=== PATIENT | male | born 1985 | race Caucasian/White ===

== ENCOUNTER 2023-03-28 08:02 | Outpatient (OUT) | payer OTHER, SELFPAY ==
--- NOTE | 2023-03-28 08:45 | CA_ITS ---
Patient Name: ISHAN HENNING MR#: [id number] : 1985 Exam Date: 03/28/2023 Ordering Doctor: RENÉ KATZ ECHOCARDIOGRAM REPORT PROCEDURE: CA ECHO DOPPLER COMPLETE INDICATIONS: Bradycardia, Afib COMPARISON: None. DESCRIPTION: COMPLETE ECHOCARDIOGRAM Real-time transthoracic echocardiography with 2D, M-mode, spectral and color flow Doppler performed. QUALITY: Technical quality was good. LEFT VENTRICLE: Normal chamber size. Moderate concentric left ventricular hypertrophy. LV EF: Global left ventricular systolic function is normal. Calculated left ventricular ejection fraction is 61% DIASTOLIC: Normal diastolic function. ATRIAL SEPTUM: Inadequately seen. LEFT ATRIUM: Normal chamber size. RIGHT ATRIUM: Mild dilatation. RIGHT VENTRICLE: Upper normal limits in size. Normal right ventricular systolic function. TRICUSPID VALVE: Normal mobility and thickness. No stenosis with trivial regurgitation. No evidence of pulmonary hypertension. RVSP 19mmHg MITRAL VALVE: Normal mobility and thickness. No evidence of mitral valve stenosis. There is no mitral annular calcification. Trivial mitral regurgitation. AORTIC VALVE: Normal trileaflet appearance. No visible sclerosis. Normal leaflet mobility. No evidence of aortic valve stenosis. No aortic regurgitation. AORTIC ROOT: Normal diameter and appearance. PULMONIC VALVE: Normal thickness and mobility. No stenosis. Trivial regurgitation. PERICARDIUM: No evidence of pericardial effusion. IVC: Collapses with inspirations. Normal size. CONCLUSION: 1. Global left ventricular systolic function is normal; visually estimated ejection fraction is 60 to 65% 2. The right ventricle is upper normal limits in size with normal systolic function 3. Moderately increased left ventricular wall thickness 4. The right atrium is mildly dilated 5. No significant valvular abnormalities Adult Echocardiography Procedure Report Left Ventricle LVEDD (3.7 - 5.6 cm): 5.10 cm LVESD (2.2 - 4.0 cm): 3.35 cm LVIVS thickness (0.6 - 1.2 cm): 1.53 cm LVPW thickness (0.5 - 1.0 cm): 1.45 cm e': 0.15 m/s E - e': 6.21 LVOT Max Gradient: 5.09 mm[Hg] LVOT Area (cm2): 1.13 m/s Peak Velocity (LVOT): 1.13 m/s Mean Velocity (LVOT): 0.74 m/s LVOT Diameter 2.57 cm Left Ventricular Ejection Fraction: 60.78 % Left Atrium LA Volume Index (2D A2C): 28.42 ml/m2 Left Atrium Systolic Dimension: 4.00 cm Mitral Valve MV E to A Ratio: 1.54 Mitral Valve A-Wave Peak Velocity: 0.60 m/s Mitral Valve E-Wave Peak Velocity: 0.92 m/s Right Ventricle RV Internal Diastolic Dimension: 4.15 cm Aorta AO Root Diam: 2.98 cm Ascending Ao Diam: 3.01 cm Aortic Valve AoV Area (Peak Ramsey): 4.67 cm2, 4.67 cm2 AoV Area (VTI): 4.93 cm2, 4.93 cm2 Peak Velocity(Antegrade Flow): 1.26 m/s Peak Gradient(Antegrade Flow): 6.31 mm[Hg] Mean Velocity(Antegrade Flow): 0.82 m/s Mean Gradient(Antegrade Flow): 3.08 mm[Hg] Velocity Time Integral: 24.90 cm Tricuspid Valve Peak Velocity (Regurgitant Flow): 1.99 m/s, 1.98 m/s, 1.98 m/s Pulmonic Valve Peak Velocity: 1.40 m/s Peak Gradient: 7.79 mm[Hg], 7.79 mm[Hg] Right Atrium Right Atrium Systolic Pressure: 63.59 ml, 63.59 ml Dictated by: Mara Dooley M.D. on 03/28/2023 at 15:18 Approved by: Mara Dooley M.D. on 03/28/2023 at 15:21
== END 2023-03-28 08:03 | disposition home or self-care (01) ==
LOC: CARD 08:02
PROVIDERS: PCP Family Medicine; Visit Provider Nurse Practitioner
DX: R00.1 Bradycardia, unspecified (principal); I48.91 Unspecified atrial fibrillation; I48.92 Unspecified atrial flutter
CPT/HCPCS: 93306

== ENCOUNTER 2023-05-03 06:34 | Outpatient (OUT) | payer OTHER, SELFPAY ==
--- OUTSIDE RECORDS SUMMARY | 2023-05-03 06:36 | XMS_ITS | CCD ---
Author Name Unknown Address [address] [place] [id number] Organization [facility] Care Team Providers Care Clinical Instructor Name Role Phone ZEB CESAR Admitting Unavailable ZEB CESAR Attending Unavailable BROWN SANCHEZ Primary Care Unavailable CAROLYN LAWS Referring Unavailable NE Procedure Practitioner Unavailab KEISHA Cheung Surgeon Unavailable JERAMIE, DR CANDY Callaway Primary Care Unavailable CAROLYN LAWS Admitting Unavailable CAROLYN LAWS Attending Unavailable CAROLYN LAWS Consulting Unavailable JERAMIE, DR CANDY Callaway Primary Care Unavailable JERAMIE, DR CANDY Callaway Admitting Unavailable YNESEREDoug, DR CANDY Callaway Attending Unavailable NADERER, DR CANDY Callaway Consulting Unavailable NADERER, DR CANDY Callaway Primary Care Unavailable NADERER, DR CANDY Callaway Admitting Unavailable NADAURELIOR, DR CANDY Callaway Attending Unavailable JERAMIE, DR CANDY Callaway Consulting Unavailable RENÉ KATZ Attending Unavailable Saba Adhikari Unavailable Allergies Allergy Classification Reported Allergen(s) Allergy Type Date of Onset Reaction(s) Facility (1 source) Gentamicin Drug Allergy redness/itching [facility] Other Medications Current Medications Medication Drug Class(es) Dates Sig (Normalized) Sig (Original) Doxycycline (1 source) Tetracycline-class Drug Doxycycline Active Omeprazole (1 source) Proton Pump Inhibitor Omeprazole Active Wegovy (1 source) Wegovy Active {20 (nirmatrelvir 150 MG Oral Tablet) / 10 (ritonavir 100 MG Oral Tablet) } Pack [Paxlovid 5-Day] (1 source) Paxlovid (300/10 0) 20 x 150 MG & 10 x 100MG as directed Orally every 12 hours for 5 days Active Completed/Discontinued Medications Medication Drug Class(es) Dates Sig (Normalized) Sig (Original) Triamcinolone (1 source) Corticosteroid Start: 06-03-2016 KENALOG - 10 m g 20 Feb, 2017 60 mg Problems Active Problems Problem Classification Problem Date Documented Da te Episodic/Chronic Cardiac dysrhythmias (4 sources) Unspecified atrial fibrillation; 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: [Unspecified atrial flutter] Onset: 03-14-2023 Chronic Cardiac dysrhythmias (6 sources) Bradycardia, unspecified; 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: [BRADYCARDIA UNSPECIFIED] Onset: 03-18-2022 Episodic Deficiency and other anemia (1 source) Iron deficiency anemia, unspecified; 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: [IRON DEFICIENCY ANEMIA UNSPECIFIED] Onset: 05-14-2022 Episodic Malaise and fatigue (1 source) Chronic fatigue syndrome; 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: [Chronic fatigue, unspecified] Chronic Other connective tissue disease (1 source) Trochanteric bursitis; 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: [Trochanteric bursitis, right hip] Episodic Other disorders of stomach and duodenum (1 source) Indigestion; 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: [Functional dyspepsia] Episodic Other gastrointestinal disorders (4 sources) Bariatric surgery status; 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: [BARIATRIC SURGERY STATUS] Onset: 05-11-2022 Episodic Other gastrointestinal disorders (1 source) History of bariatric surgical procedure; 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: [Bariatric surgery status] Episodic Other nervous system disorders (1 source) Skin sensation disturbance; 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: [Paresthesia of skin] Episodic Other nutritional; endocrine; and metabolic disorders (1 source) Body mass index 30+ - obesity; 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: [Body mass index (BMI) 39.0-39.9, adult] Chronic Other nutritional; endocrine; and metabolic disorders (2 sources) Body mass index 40+ - severely obese; 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: [Body mass index (BMI) 50.0-59.9, adult] Chronic Spondylosis; intervertebral disc disorders; other back problems (4 sources) Degeneration of lumbosacral intervertebral disc; 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: [Other intervertebral disc degeneration, lumbosacral region] Chronic Spondylosis; intervertebral disc disorders; other back problems (2 sources) Sciatica; 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: [Sciatica, unspecified side] Episodic Past or Other Problems Problem Classification Problem Date Documented Da te Episodic/Chronic Other aftercare (4 sources) 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; 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: [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] Onset: 08-23-2021 Episodic Unclassified (1 source) Acute cough R05.1 Viral infection (1 source) COVID-19 Results Test Name Value Interpretation Reference Range Facility COVID + FLU Quick Testingon 03-16-2023 SARS-CoV-2 (COVID-19) RNA REBECCA+probe Ql (Unsp spec) Positive [facility] Other COVID + FLU Quick Testing Negative [facility] Other Office Visiton 03-14-2023 Follow-up visit [id number] Ishan Henning 1985 M Date Provider Department Center 03/14/2023 Blaise-RENÉ KATZ [facility] Family History Problem Relation Age of Onset No Known Problems Mother No Known Problems Father Hypertension Brother Cancer Father's Sister Cancer Father's Brother Family Status - Relation Status Age at Mother Father Brother Father's Sister Father's Brother Level of Service:00053 NE OFFICE/OUTPATIENT NEW MODERATE MDM 45-59 MINUTES Normal [facility] [place] VITAMIN B1 (THIAMINE)on Vit. B1, Whole Blood 199.8 nmol/L Normal 66.5-200.0 [facility] Comment on above: Performed By: #### V ITB1T #### [facility] [address] [place] [address] Dr. Nancy Hardy CBC AUTO DIFFon 05-11-2022 BASO # 0.1 103/ul Normal 0.0-0.1 [facility] Comment on above: Performed By: #### C BC #### [facility] [address] [place] [address] Dr. Nancy Hardy Basophils/100 WBC (Bld) 0.7 % Normal 0.2-2.0 [facility] Comment on above: Performed By: #### C BC #### [facility] [address] [place] [address] Dr. Nancy Hardy EO # 0.2 103/ul Normal 0.0-0.[address] [facility] Comment on above: Performed By: #### C BC #### [facility] [address] [place] [address] Dr. Nancy Hardy Eosinophils/100 WBC (Bld) 2.3 % Normal 0.9-7.0 [facility] Comment on above: Performed By: #### C BC #### [facility] [address] [address] [address] Nancy Hardy Erythrocyte distribution width (RBC) [Ratio] 12.7 % Normal 11.0-15.0 [facility] Comment on above: Performed By: #### C BC #### [facility] [address] [place] [address] Dr. Nancy Hardy Hematocrit (Bld) [Volume fraction] 42.8 % Normal 42.0-54.0 [facility] Comment on above: Performed By: #### C BC #### [facility] [address] [place] [address] Dr. Nancy Hardy Hemoglobin (Bld) [Mass/Vol] 15.5 g/dL Normal 14.0-18.0 [facility] Comment on above: Performed By: #### C BC #### [facility] [address] [place] [address] Dr. Nancy Hardy IG # 0.01 10e3/ul Normal 0.00-0.03 [facility] Comment on above: Performed By: #### C BC #### [facility] [address] [place] [address] Dr. Nancy Hardy IG % 0.1 % Normal 0.0-0.5 [facility] Comment on above: Performed By: #### C BC #### [facility] [address] [place] [address] Dr. Nancy Hardy LYMPH # 1.6 103/ul Normal 1.2-3.8 [facility] Comment on above: Performed By: #### C BC #### [facility] [address] [place] [address] Dr. Nancy Hardy Lymphocytes/100 WBC (Bld) 20.7 % Normal 20.5-60.0 [facility] Comment on above: Performed By: #### C BC #### [facility] [address] [place] [address] Dr. Nancy Hardy MANUAL DIFF REQ NO Normal [facility] Comment on above: Performed By: #### C BC #### [facility] [address] [place] [address] Dr. Nancy Hardy MCH (RBC) [Entitic mass] 31.8 pg Normal 25.9-34.[address] [facility] Comment on above: Performed By: #### C BC #### [facility] [address] [place] [address] Dr. Nancy Hardy MCHC (RBC) [Mass/Vol] 36.2 g/dL Critically high 29.9-35.[address] [facility] Comment on above: Performed By: #### C BC #### [facility] [address] [place] [address] Dr. Nancy Hardy MCV (RBC) [Entitic vol] 87.9 fL Normal 80.0-94.0 [facility] Comment on above: Performed By: #### C BC #### [facility] [address] [place] [address] Dr. Nancy Hardy MONO # 0.5 103/ul Normal 0.3-0.8 [facility] Comment on above: Performed By: #### C BC #### [facility] [address] [place] [address] Dr. Nancy Hardy Monocytes/100 WBC (Bld) 6.6 % Normal 1.7-12.0 [facility] Comment on above: Performed By: #### C BC #### [facility] [address] [place] [address] Dr. Nancy Hardy NEUT # 5.4 103/ul Normal 1.4-6.[address] [facility] Comment on above: Performed By: #### C BC #### [facility] [address] [place] [address] Dr. Nancy Hardy Neutrophils/100 WBC (Bld) 69.6 % Normal 43.0-75.[address] [facility] Comment on above: Performed By: #### C BC #### [facility] [address] [place] [address] Dr. Nancy Hardy Platelet mean volume (Bld) [Entitic vol] 9.9 fL Normal 9.5-13.[address] [facility] Comment on above: Performed By: #### C BC #### [facility] [address] [place] [address] Dr. Nancy Hardy PLT 250 103/ul Normal 150-[address] [facility] Comment on above: Performed By: #### C BC #### [facility] [address] [place] [address] Dr. Nancy Hardy RBC 4.87 106/ul Normal 4.70-6.[address] [facility] Comment on above: Performed By: #### C BC #### [facility] [address] [place] [address] Dr. Nancy Hardy WBC 7.7 103/ul Normal 4.0-11.[address] [facility] Comment on above: Performed By: #### C BC #### [facility] [address] [place] [address] Dr. Nancy Hardy FERRITINon 05-11-2022 Ferritin [Mass/Vol] 53.0 ng/mL Normal 26.0-388.[address] [facility] Comment on above: Performed By: #### A LT, AST #### [facility] [address] [place] [address] Dr. Nancy Hardy IRON AND TIBCon 05-11-2022 % SATURATION 44.3 % Normal [facility] Comment on above: Performed By: #### B 12FOL, VITAD, FETIBC, FERR #### [facility] [address] [place] [address] Dr. Nancy Hardy Iron [Mass/Vol] 158.0 ug/dL Normal 65.0-175.0 [facility] Comment on above: Performed By: #### B 12FOL, VITAD, FETIBC, FERR #### [facility] [address] [place] [address] Dr. Nancy Hardy TIBC DIRECT 357.0 ug/dL Normal 250.0-450.0 [facility] Comment on above: Performed By: #### B 12FOL, VITAD, FETIBC, FERR #### [facility] [address] [place] [address] Dr. Nancy Hardy MAGNESIUMon 05-11-2022 Magnesium [Mass/Vol] 1.9 mg/dL Normal 1.8-2.4 [facility] Comment on above: Performed By: #### M G, CMP, PHOS #### [facility] [address] [place] [address] Dr. Nancy Hardy PHOSPHORUSon 05-11-2022 Phosphate [Mass/Vol] 3.9 mg/dL Normal 2.6-4.7 [facility] Comment on above: Performed By: #### M G, CMP, PHOS #### [facility] [address] [place] [address] Dr. Nancy Hardy PROF 14(COMP METB)on 023 Albumin [Mass/Vol] 4.0 g/dL Normal 3.4-5.0 [facility] Comment on above: Performed By: #### M G, CMP, PHOS #### [facility] [address] [place] [address] Dr. Nancy Hardy Albumin/Globulin [Mass ratio] 1.3 {ratio} Normal [facility] Comment on above: Performed By: #### M G, CMP, PHOS #### [facility] [address] [place] [address] Dr. Nancy Hardy ALP [Catalytic activity/Vol] 76 U/L Normal 46-116 [facility] Comment on above: Performed By: #### M G, CMP, PHOS #### [facility] [address] [place] [address] Dr. Nancy Hardy ALT [Catalytic activity/Vol] 35 U/L Normal 16-63 [facility] Comment on above: Performed By: #### M G, CMP, PHOS #### [facility] [address] [place] [address] Dr. Nancy Hardy Anion gap [Moles/Vol] 14.6 mmol/L Normal [facility] Comment on above: Performed By: #### M G, CMP, PHOS #### [facility] [address] [place] [address] Dr. Nancy Hardy AST [Catalytic activity/Vol] 33 U/L Normal 15-37 [facility] Comment on above: Performed By: #### M G, CMP, PHOS #### [facility] [address] [place] [address] Dr. Nancy Hardy Bilirubin [Mass/Vol] 1.4 mg/dL Critically high 0.2-1.0 [facility] Comment on above: Performed By: #### M G, CMP, PHOS #### [facility] [address] [place] [address] Dr. Nancy Hardy Calcium [Mass/Vol] 9.6 mg/dL Normal 8.5-10.1 [facility] Comment on above: Performed By: #### M G, CMP, PHOS #### [facility] [address] [place] [address] Dr. Nancy Hardy Chloride [Moles/Vol] 104 mmol/L Normal 98-107 [facility] Comment on above: Performed By: #### M G, CMP, PHOS #### [facility] [address] [place] [address] Dr. Nancy Hardy CO2 [Moles/Vol] 28.4 mmol/L Normal 21.0-32.0 [facility] Comment on above: Performed By: #### M G, CMP, PHOS #### [facility] [address] [place] [address] Dr. Nancy Hardy Creatinine [Mass/Vol] 0.91 mg/dL Normal 0.70-1.30 [facility] Comment on above: Performed By: #### M G, CMP, PHOS #### [facility] [address] [place] [address] Dr. Nancy Hardy EGFR-AF AUSTRIAN >60 Normal >=60 [facility] Comment on above: Performed By: #### M G, CMP, PHOS #### [facility] [address] [place] [address] Dr. Nancy Hardy EGFR-NON AF AUSTRIAN >60 Normal >=60 [facility] Comment on above: Performed By: #### M G, CMP, PHOS #### [facility] [address] [place] [address] Dr. Nancy Hardy Globulin (S) [Mass/Vol] 3.2 g/dL Normal [facility] Comment on above: Performed By: #### M Isi CMP, PHOS #### [facility] [address] [place] [address] Dr. Nancy Hardy Glucose [Mass/Vol] 88 mg/dL Normal 74-106 [facility] Comment on above: Performed By: #### M Isi CMP, PHOS #### [facility] [address] [place] [address] Dr. Nancy Hardy Potassium [Moles/Vol] 4.0 mmol/L Normal 3.5-5.1 [facility] Comment on above: Performed By: #### M Isi CMP, PHOS #### [facility] [address] [place] [address] Dr. Nancy Hardy Protein [Mass/Vol] 7.2 g/dL Normal 6.4-8.2 [facility] Comment on above: Performed By: #### Jr Snowden CMP, PHOS #### [facility] [address] [place] [address] Dr. Nancy Hardy Sodium [Moles/Vol] 143 mmol/L Normal 136-145 [facility] Comment on above: Performed By: #### M Isi CMP, PHOS #### [facility] [address] [place] [address] Dr. Nancy Hardy Urea nitrogen [Mass/Vol] 21.0 mg/dL Critically high 7.0-18.0 [facility] Comment on above: Performed By: #### Jr Snowden CMP, PHOS #### [facility] [address] [place] [address] Dr. Nancy Hardy Urea nitrogen/Creatinin e [Mass ratio] 23.1 mg/mg Normal [facility] Comment on above: Performed By: #### M Isi CMP, PHOS #### [facility] [address] [place] [address] Dr. Nancy Hardy VIT B12 AND FOLATEon 023 Cobalamin (Vitamin B12) [Mass/Vol] 1023.0 pg/mL Critically high 193.0-986.0 [facility] Comment on above: Performed By: #### B 12FOL, VITAD, FETIBC, FERR #### [facility] [address] [address] [address] Nancy Hardy FOLATE 20.70 ng/mL Normal 8.60-58.90 [facility] Comment on above: Performed By: #### B 12FOL, VITAD, FETIBC, FERR #### [facility] [address] [place] [address] Dr. Nancy Hardy VITAMIN D 25 OHon 05-11-2022 VIT D 25-OH 54.2 ng/mL Normal [facility] Comment on above: Performed By: #### B 12FOL, VITAD, FETIBC, FERR #### [facility] [address] [place] [address] Dr. Nancy Hardy VIT D RANGES SEE BELOW Normal [facility] Comment on above: Result Comment: <20 ng/mL Vit D deficient 20 - <30 ng/mL Vit D insufficient 30 - 100 ng/mL Vit D sufficient >100 ng/mL Potential Toxicity Performed By: #### B 12FOL, VITAD, FETIBC, FERR #### [facility] [address] [place] [address] Dr. Nancy Ferris 08-23-2021 AST [Catalytic activity/Vol] 21 U/L Normal 15-37 [facility] Comment on above: Performed By: #### A LT, AST #### [facility] [address] [place] [address] Dr. Nancy Deshpande 08-23-2021 ALT [Catalytic activity/Vol] 30 U/L Normal 16-63 [facility] Comment on above: Performed By: #### A LT, AST #### [facility] [address] [place] [address] Dr. Nancy Hardy Complete Blood Count with Au to Diffon 05-21-2021 Basophils (Bld) [#/Vol] 0.05 10*3/uL Normal 0.00-0.20 [facility] Comment on above: Performed By: #### C MP, FE Prof, VITD, CBCAD, PHOS, MG, FERR #### [facility] [address] [place], [place] [id number] Basophils/100 WBC (Bld) 0.8 % Normal [facility] Comment on above: Performed By: #### C MP, FE Prof, VITD, CBCAD, PHOS, MG, FERR #### [facility] [address] [place], [place] [id number] Eosinophils (Bld) [#/Vol] 0.17 10*3/uL Normal 0.02-0.50 [facility] Comment on above: Performed By: #### C MP, FE Prof, VITD, CBCAD, PHOS, MG, FERR #### [facility] [address] [place], [place] [id number] Eosinophils/100 WBC (Bld) 2.8 % Normal [facility] Comment on above: Performed By: #### C MP, FE Prof, VITD, CBCAD, PHOS, MG, FERR #### [facility] [address] [place], [place] [id number] Erythrocyte distribution width (RBC) [Ratio] 12.6 % Normal 11.0-15.0 [facility] Comment on above: Performed By: #### C MP, FE Prof, VITD, CBCAD, PHOS, MG, FERR #### [facility] [address] [place], [place] [id number] Hematocrit (Bld) [Volume fraction] 45.3 % Normal 38.5-50.0 [facility] Comment on above: Performed By: #### C MP, FE Prof, VITD, CBCAD, PHOS, MG, FERR #### [facility] [address] [place], [place] [id number] Hemoglobin (Bld) [Mass/Vol] 15.3 g/dL Normal 13.0-17.1 [facility] Comment on above: Performed By: #### C MP, FE Prof, VITD, CBCAD, PHOS, MG, FERR #### [facility] [address] [place], [place] [id number] Lymphocytes (Bld) [#/Vol] 1.5 10*3/uL Normal 0.9-3.9 [facility] Comment on above: Performed By: #### C MP, FE Prof, VITD, CBCAD, PHOS, MG, FERR #### [facility] [address] [facility] [place] [id number] Lymphocytes/100 WBC (Bld) 24.8 % Normal [facility] Comment on above: Performed By: #### C MP, FE Prof, VITD, CBCAD, PHOS, MG, FERR #### [facility] [address] [facility] [place] [id number] MCH (RBC) [Entitic mass] 31.8 pg Normal 27.0-33.0 [facility] Comment on above: Performed By: #### C MP, FE Prof, VITD, CBCAD, PHOS, MG, FERR #### [facility] [address] [place], [place] [id number] MCHC (RBC) [Mass/Vol] 33.8 g/dL Normal 32.0-36.0 [facility] Comment on above: Performed By: #### C MP, FE Prof, VITD, CBCAD, PHOS, MG, FERR #### [facility] [address] [facility] [place] [id number] MCV (RBC) [Entitic vol] 94 fL Normal 80-100 [facility] Comment on above: Performed By: #### C MP, FE Prof, VITD, CBCAD, PHOS, MG, FERR #### [facility] [address] [facility] [place] [id number] Monocytes (Bld) [#/Vol] 0.4 10*3/uL Normal 0.2-0.9 [facility] Comment on above: Performed By: #### C MP, FE Prof, VITD, CBCAD, PHOS, MG, FERR #### [facility] [address] [facility] [place] [id number] Monocytes/100 WBC (Bld) 7.2 % Normal [facility] Comment on above: Performed By: #### C MP, FE Prof, VITD, CBCAD, PHOS, MG, FERR #### [facility] [address] [facility] [place] [id number] Neutrophils (Bld) [#/Vol] 3.9 10*3/uL Normal 1.5-7.8 [facility] Comment on above: Performed By: #### C MP, FE Prof, VITD, CBCAD, PHOS, MG, FERR #### [facility] [address] [place], [place] [id number] Neutrophils/100 WBC (Bld) 64.1 % Normal [facility] Comment on above: Performed By: #### C MP, FE Prof, VITD, CBCAD, PHOS, MG, FERR #### [facility] [address] [place], [place] [id number] Platelet mean volume (Bld) [Entitic vol] 10.60 fL Normal 7.50-12.50 [facility] Comment on above: Performed By: #### C MP, FE Prof, VITD, CBCAD, PHOS, MG, FERR #### [facility] [address] [place], [place] [id number] Platelets (Bld) [#/Vol] 237 10*3/uL Normal 140-400 [facility] Comment on above: Performed By: #### C MP, FE Prof, VITD, CBCAD, PHOS, MG, FERR #### [facility] [address] [place], [place] [id number] RBC (Bld) [#/Vol] 4.81 10*6/uL Normal 4.20-5.80 [facility] Comment on above: Performed By: #### C MP, FE Prof, VITD, CBCAD, PHOS, MG, FERR #### [facility] [address] [place], [place] [id number] RDW-SD 43.5 fL Normal 37.0-50.0 [facility] Comment on above: Performed By: #### C MP, FE Prof, VITD, CBCAD, PHOS, MG, FERR #### [facility] [address] [place], [place] [id number] WBC (Bld) [#/Vol] 6.1 10*3/uL Normal 3.8-11.0 [facility] Comment on above: Performed By: #### C MP, FE Prof, VITD, CBCAD, PHOS, MG, FERR #### [facility] [address] [place], [place] [id number] Comprehensive Metabolic Pane jessica 05-21-2021 Albumin [Mass/Vol] 4.6 g/dL Normal 3.6-5.1 [facility] Comment on above: Performed By: #### C MP, FE Prof, VITD, CBCAD, PHOS, MG, FERR #### [facility] [address] [place], [place] [id number] Albumin/Globulin [Mass ratio] 2.3 {ratio} Normal 1.0-2.5 [facility] Comment on above: Performed By: #### C MP, FE Prof, VITD, CBCAD, PHOS, MG, FERR #### [facility] [address] [place], [place] [id number] ALP [Catalytic activity/Vol] 91 U/L Normal 40-129 [facility] Comment on above: Performed By: #### C MP, FE Prof, VITD, CBCAD, PHOS, MG, FERR #### [facility] [address] [place], [place] [id number] ALT [Catalytic activity/Vol] 21 U/L Normal 9-46 [facility] Comment on above: Result Comment: 03/14 Female reference range changed. Performed By: #### C MP, FE Prof, VITD, CBCAD, PHOS, MG, FERR #### [facility] [address] [place], [place] [id number] Anion gap [Moles/Vol] 17 mmol/L Normal 12-20 [facility] Comment on above: Result Comment: Effe ctive 04/19/2019 reference range changed. Performed By: #### C MP, FE Prof, VITD, CBCAD, PHOS, MG, FERR #### [facility] [address] [place], [place] [id number] AST [Catalytic activity/Vol] 23 U/L Normal 10-40 [facility] Comment on above: Performed By: #### C MP, FE Prof, VITD, CBCAD, PHOS, MG, FERR #### [facility] [address] [place], [place] [id number] Bilirubin [Mass/Vol] 0.57 mg/dL Normal 0.30-1.20 [facility] Specialist Comment on above: Performed By: #### C MP, FE Prof, VITD, CBCAD, PHOS, MG, FERR #### [facility] [address] [place], [place] [id number] BUN/CREA 25 Ratio High 6-22 [facility] Specialist Comment on above: Performed By: #### C MP, FE Prof, VITD, CBCAD, PHOS, MG, FERR #### [facility] [address] [place], [place] [id number] Calcium [Mass/Vol] 9.7 mg/dL Normal 8.6-10.2 [facility] Comment on above: Performed By: #### C MP, FE Prof, VITD, CBCAD, PHOS, MG, FERR #### [facility] [address] [place], [place] [id number] Chloride [Moles/Vol] 106 mmol/L Normal 98-107 [facility] Comment on above: Performed By: #### C MP, FE Prof, VITD, CBCAD, PHOS, MG, FERR #### [facility] [address] [place], [place] [id number] CO2 [Moles/Vol] 24 mmol/L Normal 20-31 [facility] Comment on above: Performed By: #### C MP, FE Prof, VITD, CBCAD, PHOS, MG, FERR #### [facility] [address] [place], [place] [id number] Creatinine [Mass/Vol] 0.8 mg/dL Normal 0.7-1.4 [facility] Comment on above: Performed By: #### C MP, FE Prof, VITD, CBCAD, PHOS, MG, FERR #### [facility] [address] [place], [place] [id number] eGFRAA 144 mL/min/1.73m2 Normal >60 [facility] Specialist Comment on above: Performed By: #### C MP, FE Prof, VITD, CBCAD, PHOS, MG, FERR #### [facility] [address] [place], [place] [id number] eGFRNAA 119 mL/min/1.73m2 Normal >60 [facility] [place] [facility] Comment on above: Performed By: #### C MP, FE Prof, VITD, CBCAD, PHOS, MG, FERR #### [facility] [address] [place], [place] [id number] Globulin (S) [Mass/Vol] 2.0 g/dL Normal 1.9-3.7 [facility] Comment on above: Performed By: #### C MP, FE Prof, VITD, CBCAD, PHOS, MG, FERR #### [facility] [address] [place], [place] [id number] Glucose [Mass/Vol] 92 mg/dL Normal 65-99 [facility] [employer] [facility] Comment on above: Result Comment: For FASTING Glucose --- ADA reference ranges: Normal 65-99 mg/dl Prediabetes 100-125 Diabetes >/= 126 Performed By: #### C MP, FE Prof, VITD, CBCAD, PHOS, MG, FERR #### [facility] [address] [place], [place] [id number] Potassium [Moles/Vol] 4.5 mmol/L Normal 3.5-5.5 [facility] Comment on above: Performed By: #### C MP, FE Prof, VITD, CBCAD, PHOS, MG, FERR #### [facility] [address] [place], [place] [id number] Protein [Mass/Vol] 6.6 g/dL Normal 6.1-8.1 [facility] [place] [facility] [employer] [facility] Comment on above: Performed By: #### C MP, FE Prof, VITD, CBCAD, PHOS, MG, FERR #### [facility] [address] [place], [place] [id number] Sodium [Moles/Vol] 143 mmol/L Normal 135-146 [facility] rn [place] [employer] [facility] Comment on above: Performed By: #### C MP, FE Prof, VITD, CBCAD, PHOS, MG, FERR #### [facility] [address] [place], [place] [id number] Urea nitrogen [Mass/Vol] 19 mg/dL Normal 7-25 [facility] Comment on above: Performed By: #### C MP, FE Prof, VITD, CBCAD, PHOS, MG, FERR #### [facility] [address] [place], [place] [id number] Ferritinon 05-21-2021 FERR 38.4 ng/mL Normal 30.0-400.0 [facility] Comment on above: Performed By: #### C MP, FE Prof, VITD, CBCAD, PHOS, MG, FERR #### [facility] [address] [place], [place] [id number] Iron Profileon 05-21-2021 %FESAT 22 % Normal 15-60 [facility] Comment on above: Performed By: #### C MP, FE Prof, VITD, CBCAD, PHOS, MG, FERR #### [facility] [address] [place], [place] [id number] FE 78 ug/dL Normal 50-180 [facility] Comment on above: Result Comment: Refe rence range change 02/28/2017. Prior reference range F 37-145 ug/dL, M 59-158 ug/dL. Performed By: #### C MP, FE Prof, VITD, CBCAD, PHOS, MG, FERR #### [facility] [address] [place], [place] [id number] TIBC 353 ug/dL Normal 250-425 [facility] Comment on above: Performed By: #### C MP, FE Prof, VITD, CBCAD, PHOS, MG, FERR #### [facility] [address] [place], [place] [id number] UIBC 275 ug/dL Normal 112-347 [facility] Comment on above: Performed By: #### C MP, FE Prof, VITD, CBCAD, PHOS, MG, FERR #### [facility] [address] [place], [place] [id number] Magnesiumon 05-21-2021 Magnesium [Mass/Vol] 2.0 mg/dL Normal 1.5-2.3 [facility] Comment on above: Performed By: #### C MP, FE Prof, VITD, CBCAD, PHOS, MG, FERR #### [facility] [address] [place], [place] [id number] Phosphoruson 05-21-2021 Phosphate [Mass/Vol] 3.3 mg/dL Normal 2.2-4.4 [facility] [place] [facility] Comment on above: Performed By: #### C MP, FE Prof, VITD, CBCAD, PHOS, MG, FERR #### [facility] [address] [place], [place] [id number] Vitamin B12/Folateon 022 Cobalamin (Vitamin B12) [Mass/Vol] 890 pg/mL Normal 211-946 [facility] Comment on above: Performed By: #### B 12/Fol #### [facility] [address] [place], [place] [id number] FOL >20.0 Normal [facility] Specialist Comment on above: Result Comment: Refe rence range change 02/28/2017. Prior reference range F 4.8-37.3 ng/mL, M 4.5-32.2 ng/mL. Performed By: #### B 12/Fol #### [facility] [address] [place], [place] [id number] Vitamin D 25-OHon 05-21-2021 VIT D 25 OH 45 ng/ml Normal >29 [facility] Comment on above: Result Comment: Trixie min D Status Deficiency <20 ng/mL Insufficiency 20-29 ng/mL Optimal 30-100 ng/mL Possible Toxicity >=150 ng/mL Performed By: #### C MP, FE Prof, VITD, CBCAD, PHOS, MG, FERR #### [facility] [address] [place], [place] [id number] ERCPon 01-06-2020 ERCP [facility] Department of Radiology [address] [place] [id number] Patient Name: ISHAN HENNING : 1985 Sex: M Age: Race: White Pt. 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 Endoscope noted as well as catheter and balloon, with opacification of portions of the intra and extra hepatic bile ducts. Fluoroscopy Time: 1 minutes 40 seconds. IMPRESSION: Intraoperative fluoroscopy for ERCP. Please see the GI procedure note for further details. Approved by:Milana Antony01/06/2020 8:51 AM. I, Ashok Schneider,have reviewed the images and reports Electronically signed: Ashok Schneider. Transcribed by: [email or web address], User Resident: MILANA BRIGHT Electronically Signed by: ASHOK SCHNEIDER @ 01/06/2020 10:01 AM I personally read this/these film(s) with this resident Normal [facility] Comment on above: Order Comment: , , = ========= , Ordering Provider - ROMMEL CELAYA MD , GI Letteron 01-06-2020 GI Letter [facility] Department of Medicine Academic Fax: Division of [phone] Gastroenterology Clinic Phone: [facility] [phone] [facility] Fax: [place] [phone] [phone] RE: Patient Name: Ishan Henning MR #: [id number] Date of : 1985 Date of Service:01/06/2020 Carolyn Laws M.D. [place] [facility] [address] [place] [address], [address] [place] [address] Laws, I had the pleasure of seeing your patient in our Endoscopy Unit for his history of bile leak. As you are aware, the patient is a very pleasant 34-year-old male, who had history of bile leak and was treated with biliary stent placement. He is presenting to have his biliary stent removed and to rule out any residual of bile leak. PROCEDURE PERFORMED ERCP with stent removal. MEDICATIONS General anesthesia administered by Anesthesia team. PROCEDURE IN DETAIL After obtaining the informed consent, which include the risks, benefits, alternatives, and complications, complications include bleeding, perforation, reaction to medication, pancreatitis, and prolonged hospitalization, the patient was placed in the semiprone position after receiving general anesthesia administered by anesthesia team after which Olympus video side-viewing duodenoscope was introduced through the mouth down to the esophagus, stomach, then to the 1st and 2nd part of the duodenum with no difficulties. The previously placed biliary stent was noted protruding through the papilla into the duodenal lumen. The stent was removed with a snare. Two juxta papillary diverticula were identified and the papilla located at the bridge between the 2 diverticula. With the use of 9-12 mm injecting above retrieval balloon catheter loaded with a 0.035 inch guidewire, the common bile duct was cannulated selectively. Occlusive cholangiogram was performed and no bile leak was identified. A small amount of sludge was removed from the biliary tree during balloon sweep. The procedure was performed under fluoroscopic guidance and interpretation of fluoroscopic images. The scope was then withdrawn. The patient tolerated the procedure well and sent to the recovery room in stable condition. IMPRESSION 1. Two juxta papillary diverticula were noted with the papilla being located at the bridge between the 2 diverticula. The previously placed biliary stent was noted and was removed with a snare. 2. Complete resolution of bile leak that was noted in the past from the cystic duct stump. No stones were identified with the common bile duct. PLAN 1. Clear liquid diet today and advance as tolerated. 2. We will see the patient on a p.r.n. basis. 3. Follow up with Dr. Laws. Thank you very much, Dr. Laws for allowing me to participate in the care of this very pleasant patient. Sincerely, Electronically Signed by: Zeb Ceasr M.D. 01/16/2020 07:55 P _ Zeb Cesar M.D. Date Dict: 01/06/2020/08:57 A/Zeb Cesar M.D. Date Trans: 01/06/2020 09:23 A/mmo Revised: 01/06/2020 11:54 A/pa Copy/paste [id number] cc: Brown Sanchez M.D. [address] [facility], [address] [facility] [address] Carolyn Laws M.D. [facility] [address] [place] [address], [address] [place] [address] Normal [facility] GI Letteron 11-26-2019 GI Letter [facility] Department of Medicine Academic Fax: Division of [phone] Gastroenterology Clinic Phone: [facility] [phone] [facility] Fax: [place] [phone] [phone] RE: Patient Name: Ishan Henning MR #: [id number] Date of : 1985 Date of Service:11/25/2019 Carolyn Laws M.D. [facility] [address] [place] [address], [address] [place] [id number] Laws, I had the pleasure of seeing your patient in the OR for his history of the bile leak. As you are aware, the patient is a very pleasant, 33-year-old male, who had recent laparoscopic cholecystectomy and suspected to have bile leak. He is scheduled to have an ERCP for biliary stent placement. PROCEDURE PERFORMED ERCP with stent placement and biliary sphincterotomy. MEDICATIONS General anesthesia administered by Anesthesia team and indomethacin suppositories 100 mg. ANGULAR DEVELOPER Rommel Celaya M.D. PROCEDURE IN DETAIL After obtaining the informed consent, which included the risks, benefits, alternatives, and complications; complications include bleeding, perforation, and reaction to medications in addition to pancreatitis, prolonged hospitalization, and remote possibility of , the patient agreed to proceed with the procedure. The patient was placed in the semiprone position after receiving general anesthesia administered by the Anesthesia team after which the Olympus video side-viewing duodenoscope was introduced through the mouth down to the esophagus, stomach, then to the first and second part of the duodenum with no difficulties. The major papilla was identified and 2 juxtapapillary diverticula were noted adjacent to the papilla. The papilla was located at the bridge between the 2 diverticula. With the use of the RX-44 sphincterotome loaded with a 0.035 inch guidewire, the common bile duct was cannulated selectively. Contrast was injected and contrast extravasation was noted from the cystic duct stump. Biliary sphincterotomy was then performed and the sphincterotome was then removed over the guidewire. A 9-12 mm injecting above retrieval balloon catheter was then advanced over the guidewire into the common bile duct. The common bile duct was swept few times and no stones were identified. The retrieval balloon catheter was then removed over the guidewire and a 10-Divehi x 10 cm plastic biliary stent was placed into the common bile duct. The guidewire was then removed followed by removal of the scope. The patient tolerated the procedure well and sent to the recovery room in stable condition. IMPRESSION 1. Two juxtapapillary diverticula were noted with the papilla located at the bridge between the 2 diverticula. 2. Bile leak noted from the cystic duct stump. No common bile duct stone was identified. Biliary stent 10-Divehi x 10 cm was placed into the common bile duct after performing biliary sphincterotomy. Good biliary drainage was achieved. PLAN 1. N.p.o. today. 2. ERCP for stent removal in 1 month (this is preferable to be after removal of the ZACK catheter). I was present in the room for the entire procedure to supervise the fellow. Thank you very much, Dr. Laws, for allowing me to participate in the care of this very pleasant patient. Sincerely, Electronically Signed by: Zeb Cesar M.D. 11/30/2019 07:43 A _ Zeb Cesar M.D. Date Dict: 11/25/2019/07:39 P/Zeb Cesar M.D. Date Trans: 11/25/2019 11:53 P/mmo Revised: 11/26/2019 07:36 A/pa Copy/paste [id number] cc: Carolyn Laws M.D. [place] [facility] [address] [place] [address], [address] [facility] [address] Normal [facility] ERCPon 11-25-2019 ERCP [facility] Department of Radiology [address] [place] [address] Patient Name: ISHAN HENNING : 1985 Sex: M Age: Race: White Pt. Location: OUTP Patient Status: O Ordered Date: 11/25/2019 6:55:00 AM Completed Date: 11/25/2019 07:09 PM Requesting Provider: ZEB CESAR Attending Provider: ZEB CESAR Report Copy To: Signs & Symptoms: ERCP History: Comments: ERCP Exam: ERCP ERCP 11/25/2019 7:09 PM CLINICAL INDICATIONS: ERCP TECH COMMENTS:ERCP with DR. Cesar. FL time 3.06 minutes. 117.04 mGy. # of images 6 + Dose. HFW COMPARISON: None. FINDINGS: 7 images are submitted for review from ERCP performed by the GI lab. Endoscope is passed in an antegrade fashion, and the tip of the endoscope lies in the second portion of the duodenum. The common bile duct was cannulated and contrast injected in a retrograde direction, opacifying the biliary tree. A biliary stent was placed. Fluoroscopy Time: 3.06 minutes. IMPRESSION: This dictation is for documentation purposes only. Please see the GI procedure note for further details. Electronically signed: Jojo Rodriguez. Transcribed by: [email or web address], User Resident: Electronically Signed by: JOJO RODRIGUEZ @ 11/26/2019 06:51 AM Normal [facility] Comment on above: Order Comment: ERCP Vital Signs Date Time Vital Sign Value Performing Clinician Facility 03-16-2023 11:05-0500 Body height 185.42 cm Saba Adhikari Other [facility] Other 03-16-2023 11:05-0500 Body mass index (BMI) [Ratio] 39.18 kg/m2 Saba Adhikari Other [facility] Other 03-16-2023 11:05-0500 Body temperature 97.9 [degF] Saba Adhikari Other [facility] Other 03-16-2023 11:05-0500 Body weight 134.72 kg Saba Adhikari Other [facility] Other 03-16-2023 11:05-0500 Diastolic blood pressure 71 mm[Hg] Saba Adhikari Other [facility] Other 03-16-2023 11:05-0500 Respiratory rate 18 /min Saba Adhikari Other [facility] Other 03-16-2023 11:05-0500 SaO2% (BldA) [Mass fraction] 97 % Saba Adhikari Other [facility] Other 03-16-2023 11:05-0500 Systolic blood pressure 112 mm[Hg] Saba Adhikari Other [facility] Other Encounters Encounter Date Encounter Type Care Provider Facility Start: 03-16-2023 End: 03-16-2023 ambulatory Saba Adhikari Other [facility] Other Start: 03-16-2023 Office outpatient vi sit 15 minutes Saba Adhikari [facility] Start: 03-14-2023 End: 03-14-2023 ambulatory [facility] Start: 05-11-2022 End: 05-12-[address] CANDY BOBO Facility:[facility] Start: 03-18-2022 End: 03-19-[address] CANDY BOBO Facility:[facility] Start: 08-23-2021 End: 08-24-[address] CANDY BOBO Facility:[facility] Start: 01-06-2020 End: 01-07-2020 Patient encounter procedure ZEB CESAR Facility:[facility] Procedures Date Procedure Procedure Detail Performing Clinician Start: 01-06-2020 ANES UPR GI NDSC PX ERCP KEISHA MADDEN Payers Date Payer Category Payer Unknown [id number] 1985 Unknown [id number] [id number] [id number] 1985 Unknown [id number] [id number] [id number] 1985 Unknown [id number] [id number] [id number] 1985 Unknown [id number] [id number] [id number] 1958 Private Health Insurance [id number] Social History Date Type Detail Facility Unknown if ever smoked [facility] Other Sex Assigned At Sex Assigned At Bir th [facility] Other Evaluation note 03-16-2023 Note Date & Type Note Facility 03-16-2023 Evaluation note Encounter Date Diagnosis Assessment Notes Mar, Acute cough (ICD-10 - R05.1) Mar, COVID (ICD-10 - U07.1) COVID testing is positive. Recommended patient initiate self quarantine per CDC guidlines: for at least 5 days from symptom onset, afebrile for >24 hours without use of antipyretics, and symptoms are mostly resolved. He should mask for an additional 5 days. Advised patient to treat symptomatically as discussed, rest, stay hydrated. Immediate evaluation via ED if warning symptoms of respiratory distress, intractable fevers, severe abdominal pain, inability to keep down foods or fluids, or s/s of dehydration. Follow up if new/worsening symptoms despite tx. [facility] Other Progress note 03-14-2023 Note Date & Type Note Facility 03-14-2023 Note New patient here to establish care. Ref from Dr. Bobo for bradycardia and possible afib. His Apple Watch has told him twice that he is in afib. Denies chest pain, SOB, and palpitations. Said he rarely gets dizzy upon standing up. He does jog 4 miles a day. Review of Systems Musculoskeletal: Positive for back pain. Neurological: Positive for light-headedness. All other systems reviewed and are negative. [facility] Progress note 03-14-2023 Note Date & Type Note Facility 03-14-2023 Note MA Electrophysiology Consult Note Reason for visit: new pt, bradycardia HPI: Ishan Henning is a 37 y.o. year old with past medical history of bruxism, hx gastric bypass 05/2018 , cholecystectomy 11/2019 He was referred to our clinic for concern of bradycardia on his watch that has been elevated during his stay before pulse. PCP notes occasional symptoms in 1 morning of irregular rhythm on his watch. Holter 03/2022 showed sinus rhythm, infrequent PVCs, and bradycardia Patient states he has noted on his smart watch low heart rate when he sleeps and has notified him of A-fib episodes x 2, which has been asymptomatic for. he has had no symptoms of chest pain, shortness of breath, [place], LE edema, palpitations PMH: No past medical history on file. PSH: Past Surgical History: Procedure Laterality Date CHOLECYSTECTOMY GASTRIC BYPASS WISDOM TOOTH EXTRACTION SH: Social Determinants of Health Tobacco Use: Unknown (03/14/2023) Patient History Smoking Tobacco Use: Never Smokeless Tobacco Use: Unknown Passive Exposure: Not on file Alcohol Use: Not on file Financial Resource Strain: Not on file Food Insecurity: Not on file Transportation Needs: Not on file Physical Activity: Not on file Stress: Not on file Social Connections: Not on file Intimate Partner Violence: Not on file Depression: Not on file Housing Stability: Not on file Allergies: Not on File Weight: No weight available Visit Vitals Ht 1.803 m (5' 11 ) Smoking Status Never Meds: No current outpatient medications on file prior to visit. No current facility-administered medications on file prior to visit. ROS: Cardio Basic Cardiovascular Symptoms: no lightheadedness, no leg edema, no syncope, no orthopnea, no PND, no claudication, Constitutional Constitutional: no fever, no night sweats, no significant weight gain, no significant weight loss, no exercise intolerance Eyes Eyes: no dry eyes, no irritation, no vision change ENMT Ears: no difficulty hearing, no ear pain Nose: no frequent nosebleeds, Mouth/Throat: no sore throat, no bleeding gums, no snoring, no dry mouth, no mouth ulcers, no oral abnormalities, no teeth problems Respiratory Respiratory: no cough, no wheezing, no coughing up blood, no sleep apnea Musculoskeletal Musculoskeletal: no muscle aches, no muscle weakness, joint pain+, no back pain, no swelling in the extremities Integumentary Skin no rash, no ulcer, no varicosities, no discoloration, no pruritus Neurologic Neurologic: no loss of consciousness, no weakness, no numbness, no seizures, no dizziness, no headaches Psychiatric Psych: no depression, feeling safe in relationship, no alcohol abuse, Hematologic/Lymphatic Hematologic/Lymphatic no swollen glands, no bruising Physical Exam: Constitutional General Appearance: well-nourished, well-developed, appears stated age Level of Distress: comfortable Psychiatric Mental Status: alert, normal affect Orientation: oriented to time, place, and person Insight: good judgement Eyes Lids and Conjunctivae: non-injected, no xanthelasma ENMT Ears: no lesions on external ear Nose: no lesions on external nose Oropharynx: no cyanosis, no pallor Neck Neck: supple, trachea midline Carotid Arteries: bilateral normal upstroke, no bruits Jugular Veins: normal jugular venous pressure Thyroid: not enlarged Lungs Respiratory Effort: unlabored Chest Exam: normal curvature, no thoracic deformity Auscultation: clear, no wheezing, no rales, no rhonchi Cardiovascular Rate And Rhythm: regular Heart Sounds: normal S1, normal s2, no gallop Systolic Murmur: not heard Diastolic Murmur: not heard Extremities: no cyanosis, no edema, no peripheral signs of emboli Peripheral Pulses Radial Pulse: normal Abdomen Inspection and Palpation: soft, non distended, no bruit, non tender Musculoskeletal Inspection: no joint swelling Neurologic Gait: normal gait Skin Inspection and Palpation: warm and dry Nails: no clubbing Labs: Labs 05/03/2022 unremarkable CBC, total bili 1.4 otherwise unremarkable liver function, sodium 143, K4, chloride 104, BUN 21, creatinine 0.91, GFR greater than 60 EKG: No results found for this or any previous visit (from the past 4464 hour(s)). Echo: Stress test: Coronary angiogram: @CATH@ Diagnostic Imaging: No images are attached to the encounter. Assessment and Plan: Bradycardia -mostly nocturnal, will eval with 30d monitor but otherwise likely no concern -has good functional capacity of at least mets>6 and exercises daily, runs 4 miles/day with no issues AF? / SVT? -noted on smartwatch -he had 2 episodes while sleeping with heart rate variability from 50pm-160bpm -we discussed this could be indicative of afib but without ECG strip or monitor unable to differentiate -HRV can occur from arrhythmias other than AF and on a smartwatch variability could be seen fr (more content not included)... [facility] History general Narrative - Reported Note Date & Type Note Facility History general Narrative - Reported Type Medical History Pain in right hand Medical History Stomach upset Medical History Conjunctival ulcer Medical History Dietary counseling and surveilla nce Medical History Tachycardia Medical History Lumbago-sciatica due to displacement of lumbar intervertebral disc Medical History Low back pain, unspe cified back pain laterality, unspecified chronicity, with sciatica presence unspecified Medical History Dermatofibroma Medical History Color blindness Medical History Morbid (severe) obes ity due to excess calories, bariatric surgery status 2018 Medical History advverse effect appe tite depressant /Belviq Medical History BP elevation Medical History conjunctival hemorrhage, right e ye Medical History conjunctival ulcer, OS Medical History folliculitis Medical History foot pain, left Medical History thoracic back pain Medical History acne vulgaris Medical History varicella 1991 Medical History bronchitis Medical History acne Medical History Acute cough Surgical History [place] teeth Surgical History Circumicsion by clam p procedure on Surgical History Bariatric surgery, sleeve /Ronnie r 02/2018 Surgical History scopic sleeve gastrectomy 0 Hospitalization History see sx history [facility] Other Summary Purpose Family History No Family History Records FoundNo Family History Records FoundNo Family History Records FoundNo Family History Records Found Advance Directives No Advanced Directives Records FoundNo Advanced Directives Records FoundNo Advanced Directives Records FoundNo Advanced Directives Records Found Procedure Findings Note MR#: [id number] [facility] [place] Pt. Name: Ishan Henning Surgery Date: 11/25/2019 Room #: 0C Date of : 1985 PROCEDURE NOTE ATTENDING: Zeb Cesar M.D. PROCEDURE PERFORMED: ERCP with stent placement and biliary sphincterotomy. MEDICATIONS: General anesthesia administered by Anesthesia team and indomethacin suppositories 100 mg. ANGULAR DEVELOPER: Rommel Celaya M.D. PROCEDURE IN DETAIL: After obtaining the informed consent, which included the risks, benefits, alternatives, and complications; complications include bleeding, perforation, and reaction to medications in addition to pancreatitis, prolonged hospitalization, and remote possibility of , the patient agreed to proceed with the procedure. The patient was placed in the semiprone position after receiving general anesthesia administered by the Anesthesia team after which the Olympus video side-viewing duodenoscope was introduced through the mouth down to the esophagus, stomach, then to the first and se (more content not included)... Note MR#: [id number] [facility] [place] Pt. Name: Ishan Henning Surgery Date: 01/06/2020 Room #: 0C Date of : 1985 PROCEDURE NOTE ATTENDING: Zeb Cesar M.D. PROCEDURE PERFORMED: ERCP with stent removal. MEDICATIONS: General anesthesia administered by Anesthesia team. PROCEDURE IN DETAIL: After obtaining the informed consent, which include the risks, benefits, alternatives, and complications, complications include bleeding, perforation, reaction to medication, pancreatitis, and prolonged hospitalization, the patient was placed in the semiprone position after receiving general anesthesia administered by anesthesia team after which Olympus video side-viewing duodenoscope was introduced through the mouth down to the esophagus, stomach, then to the 1st and 2nd part of the duodenum with no difficulties. The previously placed biliary stent was noted protruding through the papilla into the duodenal lumen. The stent was removed with a snare. Two juxta papillary dive (more content not included)... Additional Source Comments (unrecognized sect ion and content) No Status Records FoundNo Status Records FoundNo Status Records FoundNo Status Records Found INFORMATION SOURCE (unrecogn ized section and content) DATE CREATED AUTHOR 01/16/[address] [facility] DATE CREATED AUTHOR AUTHOR'S ORGANIZ ATION 05/22/2021 [facility] dical Specialist DATE CREATED AUTHOR AUTHOR'S ORGANIZ ATION 05/15/2022 [facility] pitri DATE CREATED AUTHOR AUTHOR'S ORGANIZ ATION 03/17/2023 [facility] REASON FOR VISIT (unrecogniz ed section and content) CONGESTION, COUGH FOR RECORDS PERTAINING TO PATIENTS WHO ARE OR HAVE BEEN ENROLLED IN A CHEMICAL DEPENDENCY/SUBSTANCEABUSE PROGRAM, SOME INFORMATION MAY BE OMITTED. This clinical summary was aggregated from multiple sources. Caution should be exercised in using it in the provision of clinical care. This summary normalizes information from multiple sources, and as a consequence, information in this document may materially change the coding, format and clinical context of patient data. In addition, data may be omitted in some cases. CLINICAL DECISIONS SHOULD BE BASED ON THE PRIMARY CLINICAL RECORDS. [employer] provides no warranty or guarantee of the accuracy or completeness of information in this document.
[2023-05-03 06:59] LABS: Basophils Absolute Auto 0.1 10^3/uL (0.0-0.1); Eosinophils Absolute Auto 0.2 10^3/uL (0.0-0.7); Hematocrit 43.6 % (42.0-54.0); Hemoglobin 14.7 g/dL (14.0-18.0); Lymphocytes Absolute Auto 1.4 10^3/uL (1.2-3.8); Lymphocytes Percent Auto 22.9 % (20.5-60.0); Mean Corpuscular HGB Conc 33.7 g/dL (29.9-35.2); Mean Corpuscular Hemoglobin 32.2 pg (25.9-34.0); Mean Corpuscular Volume 95.4 fL (80.0-94.0); Mean Platelet Volume 9.9 fL (9.5-13.5); Monocytes Absolute Auto 0.5 10^3/uL (0.3-0.8); Monocytes Percent Auto 7.7 % (1.7-12.0); Neutrophils Percent Auto 65.4 % (43.0-75.0); Platelet Count 258 10^3/uL (150-450); Red Blood Count 4.57 10^6/uL (4.70-6.10); Red Cell Distribution Width 13.3 % (11.0-15.0); White Blood Count 6.1 10^3/uL (4.0-11.0)
[2023-05-03 07:30] LABS: Alanine Aminotransferase 27 U/L (16-63); Albumin Globulin Ratio 1.2; Albumin Level 3.8 g/dL (3.4-5.0); Alkaline Phosphatase 67 U/L (46-116); Anion Gap 11.5; Aspartate Amino Transferase 20 U/L (15-37); BUN Creatinine Ratio 32.2; Bilirubin Total 1.1 mg/dL (0.2-1.0); Calcium 9.3 mg/dL (8.5-10.1); Carbon Dioxide 29.4 mmol/L (21.0-32.0); Chloride 106 mmol/L (98-107); Estimated GFR (African America >60 (>=60); Estimated GFR (Non-African Ame >60 (>=60); Globulin 3.2 g/dL; Glucose 84 mg/dL (74-106); Magnesium 1.9 mg/dL (1.8-2.4); Potassium 3.9 mmol/L (3.5-5.1); Sodium 143 mmol/L (136-145)
[2023-05-03 07:47] LABS: Percent Iron Saturation 28.2 %
[2023-05-08 12:10] LABS: Vitamin B1 (Thiamine), Blood 147.7 nmol/L (66.5-200.0)
== END 2023-05-03 06:35 | disposition home or self-care (01) ==
PROVIDERS: PCP Family Medicine
DX: R53.83 Other fatigue (principal); Z98.84 Bariatric surgery status; D50.9 Iron deficiency anemia, unspecified
CPT/HCPCS: 36415; 80053; 82306; 82607; 82728; 82746; 83540; 83550; 83735; 84100; 84425; 85025

== ENCOUNTER 2024-05-15 06:32 | Outpatient (OUT) | payer OTHER, SELFPAY ==
--- OUTSIDE RECORDS SUMMARY | 2024-05-15 06:36 | XMS_ITS | CCD ---
Author Organization [facility] Care Team Providers Care Handcrew Foreman Name Role Phone ZEB CESAR Admitting Unavailable ZEB CESAR Attending Unavailable BROWN SANCHEZ Primary Care Unavailable CAROLYN LAWS Referring Unavailable [place] Procedure Practitioner UnavailKEISHA Billings Surgeon Unavailable JERAMIE, DR PONCHO Callaway Primary Care Unavailable CAROLYN LAWS Admitting Unavailable CAROLYN LAWS Attending Unavailable CAROLYN LAWS Consulting Unavailable JERAMIE, DR PONCHO Callaway Primary Care Unavailable JERAMIE, DR PONCHO Callaway Admitting Unavailable YNESEREDoug, DR PONCHO Callaway Attending Unavailable JERAMIE, DR PONCHO Callaway Consulting Unavailable NADAURELIOR, DR PONCHO Callaway Primary Care Unavailable NADERER, DR PONCHO Callaway Admitting Unavailable NADERER, DR PONCHO Callaway Attending Unavailable JERAMIE, DR PONCHO Callaway Consulting Unavailable Adhikari, Saba Unavailable GUTIERREZ COBB Attending Unavailable JERAMIE, PONCHO Attending Unavailable RENÉ KATZ Attending Unavailable GRACIA DOYLE Attending Unavailable MADISON STANTON Attending Unavailable Poncho Bobo MD Primary Care Provider SIERRA JOESPH Admitting Unavailable SIERRA JOSEPH Attending Unavailable BROWN SANCHEZ Primary Care Unavailable STEVEN PRITCHETT Attending Unavailable BROWN SANCHEZ Primary Care Unavailable Allergies Allergy Classification Reported Allergen(s) Allergy Type Date of Onset Reaction(s) Facility (4 sources) Gentamicin Drug Allergy 09-30-2022 Itching [facility] Medications Current Medications Medication Drug Class(es) Dates Sig (Normalized) Sig (Original) Calcium (3 sources) Phosphate Binder, Calcium calcium 200 MG tablet Calcium Active Doxycycline (4 sources) Tetracycline-class Drug Start: 04-13-2022 take 1 capsule by mouth in the morning DOXYCYCLINE HYCLATE PO Take 1 capsule by mouth in the morning and 1 capsule before bedtime. 04/13/2022 Active Doxycycline Acti ve ferrous sulfate 325 mg oral tablet (3 sources) take 1 tablet by mouth at mealtime ferrous sulfate 325 (65 Fe) MG tablet Take 325 mg by mouth in the morning. Take with meals. Active ketoconazole 20 mg/ml medicated shampoo (3 sources) Azole Antifungal Start: 3 ketoconazole (NIZOral) 2 % shampoo lather on scalp DAILY in the shower let sit 2-3 MINUTES then rinse 07/30/2022 Active ammonium lactate 120 mg/ml topical cream (3 sources) Start: End: ammonium lactate (Amlactin) 12 % cream Indications: Acquired keratoderma Apply topically if needed for dry skin 140 g 3 07/02/2023 02/04/2024 Discontinued Multiple Vitamin (multivitamin) capsule (3 sources) take 1 capsule by mouth in the morning Multiple Vitamin (multivitamin) capsule Take 1 capsule by mouth in the morning. Active omeprazole 20 mg delayed release oral tablet (4 sources) Proton Pump Inhibitor omeprazole OTC (PriLOSEC OTC) 20 MG EC tablet as directed Orally Active Omeprazole Activ e saccharomyces boulardii 250 mg oral capsule (3 sources) End: 02-04-2024 take 1 capsule by mouth once daily saccharomyces boulardii (Florastor) 250 MG capsule Take 250 mg by mouth Daily 02/04/2024 Discontinued Semaglutide-Weight Management (Wegovy) 1 MG/0.5ML solution auto-injector (2 sources) Start: 02-04-2024 End: 03-05-2024 Semaglutide-Weight Management (Wegovy) 1 MG/0.5ML solution auto-injector Indications: Class 1 obesity due to excess calories without serious comorbidity with body mass index (BMI) of 33.0 to 33.9 in adult Inject 1 mg under the skin 1 (one) time per week 2 mL 02/04/2024 03/05/2024 Active Semaglutide-Weight Management (Wegovy) 2.4 MG/0.75ML solution auto-injector (3 sources) Start: 11-24-2023 inject 2.4 mg by subcutaneous injection every week Semaglutide-Weight Management (Wegovy) 2.4 MG/0.75ML solution auto-injector Indications: Morbid (severe) obesity due to excess calories (CMS/HCC) Inject 2.4 mg under the skin 1 (one) time per week 3 mL 3 11/24/2023 Active Wegovy (1 source) Wegovy Active {20 [...] Start: 06-03-2016 KENALOG - 10 m g May, 60 mg Problems Active Problems Problem Classification Problem Date Documented Da te Episodic/Chronic Biliary tract disease (3 sources) Disorder of biliary tract; 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: [Other specified diseases of biliary tract] Onset: 09-30-2022 09-30-2022 Chronic Cardiac dysrhythmias (4 sources) Unspecified atrial fibrillation; 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: [Unspecified atrial flutter] Onset: 03-14-2023 Chronic Cardiac dysrhythmias (12 sources) Bradycardia, unspecified; 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: [Bradycardia] Onset: 03-18-2022 Episodic Conduction disorders (2 sources) Conduction disorder, unspecified; 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: [Conduction disorder, unspecified] Onset: 06-03-2023 Chronic Deficiency and other anemia (1 source) Iron deficiency anemia, unspecified; 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: [IRON DEFICIENCY ANEMIA UNSPECIFIED] Onset: 05-14-2022 Episodic Malaise and fatigue (4 sources) Chronic fatigue syndrome; 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: [Chronic fatigue, unspecified] Onset: 09-30-2022 09-30-2022 Chronic Other congenital anomalies (3 sources) Porokeratosis; 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: [Other specified congenital malformations of skin] Onset: 09-30-2022 09-30-2022 Chronic Other gastrointestinal disorders (4 sources) Bariatric surgery status; 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: [BARIATRIC SURGERY STATUS] Onset: 05-11-2022 Episodic Other gastrointestinal disorders (1 source) History of bariatric surgical procedure; 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: [Bariatric surgery status] Episodic Other nutritional; endocrine; and metabolic disorders (1 source) Body mass index 30+ - obesity; 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: [Body mass index (BMI) 39.0-39.9, adult] Chronic Other nutritional; endocrine; and metabolic disorders (2 sources) Body mass index 40+ - severely obese; 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: [Body mass index (BMI) 50.0-59.9, adult] Chronic Other nutritional; endocrine; and metabolic disorders (5 sources) Obesity caused by energy imbalance; 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: [Morbid (severe) obesity due to excess calories] Onset: 09-30-2022 09-30-2022 Chronic Spondylosis; intervertebral disc disorders; other back problems (16 sources) Degeneration of lumbosacral intervertebral disc; 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: [Other intervertebral disc degeneration, lumbosacral region] Onset: 09-30-2022 09-30-2022 Chronic Past or Other Problems Problem Classification Problem Date Documented Da te Episodic/Chronic Deficiency and other anemia (3 sources) Iron deficiency anemia; 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: [Iron deficiency anemia, unspecified] Onset: 09-30-2022 09-30-2022 Episodic Other aftercare (4 sources) Other detention (current) drug therapy; 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: [OTH USP CURRENT DRUG THERAPY] Onset: 08-23-2021 Episodic Other connective tissue disease (4 sources) Trochanteric bursitis; 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: [Trochanteric bursitis, right hip] Onset: 09-30-2022 09-30-2022 Episodic Other disorders of stomach and duodenum (4 sources) Indigestion; 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: [Functional dyspepsia] Onset: 09-30-2022 09-30-2022 Episodic Other nervous system disorders (4 sources) Skin sensation disturbance; 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: [Paresthesia of skin] Onset: 09-30-2022 09-30-2022 Episodic Spondylosis; intervertebral disc disorders; other back problems (5 sources) Sciatica; 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: [Sciatica, unspecified side] Onset: 09-30-2022 09-30-2022 Episodic Unclassified (1 source) Acute cough R05.1 Viral infection (3 sources) Plantar wart of right foot; 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: [Plantar wart] Onset: 09-30-2022 09-30-2022 Episodic Viral infection (1 source) COVID-19 Results Test Name Value Interpretation Reference Range Facility [id number] 02-19-2024 [id number] DATE OF VISIT: 02/19/2024 PREOPERATIVE DIAGNOSIS: Excessive tissue of the abdomen, flanks and back with history of massive weight loss. POSTOPERATIVE DIAGNOSIS: Excessive tissue of the abdomen, flanks and back with history of massive weight loss. OPERATION PERFORMED: Circumferential body lift with [id number]-Ppn abdominal closure. SURGEON: Sierra Joseph MD. TRIAL COURT JUDGE: None. ANESTHESIA: General per endotracheal tube per Dr. Peguero. INDICATIONS: This patient is a pleasant 38-year-old seen in the office who had a massive weight loss of over 200 pounds and now had loose skin from his abdomen, across his flanks and onto his back. Additionally, it was only in the horizontal direction but also vertically. It was recommended that a Gxfny-Yh-Aqc type body lift procedure be performed and he wished to pursue that. Aware of the risks of bleeding, infection, scarring, recurrence, asymmetry, widening of scars, unhappy with the results, poor wound healing, seroma formation, need to limit his activity in the postoperative period to avoid seroma formation, but also need to ambulate to avoid blood clot, risk of anesthetic. He wished to proceed. DESCRIPTION OF PROCEDURE: The patient had preoperative markings made in the standing position. The patient was then brought in the operating room where general anesthesia was induced. The patient was placed prone on the operating table with all areas carefully padded. The patient's back, buttocks, and flanks were prepped with Betadine solution. Sterile drapes applied. An incision was made along the markings, carried through skin and subcutaneous tissue to Lizzy fascia. Dissection proceeded superiorly until the redundant tissue could overlap the lower limb of the incision marked and resected from side to side. This created a belt-like area of tissue. Once removed from side to side, the wound was closed in layers with deep buried 2-0 Vicryl, deep dermal 3-0 PDS, and running 2-0 Monocryl subcuticular stitch. Reinforced with lacey and skin glue. At the very sides, the wounds were temporarily closed with lacey to continue the body lift when the patient was in the supine position. The patient was now turned into the supine position with all areas carefully padded. The patient's perineum, thighs, abdomen, and flanks were prepped with Betadine solution and sterile drapes applied. Lacey removed from the side. The incision was then continued across the pubic area from side to side. Dissection then proceeded through skin and subcutaneous tissue along the incision, carried down to the abdominal wall where dissection proceeded upwards towards the umbilicus in a narrowing triangle. Above the umbilicus dissection proceeded up towards the xiphoid process. Now, redundant tissue was draped both in a horizontal and vertical plane to remove horizontal and vertical excess. The vertical access was removed with a midline incision around the umbilicus creating the Wfuxr-Fi-Slx pattern. After the excessive tissue was removed, the vertical and horizontal incisions were closed with deep buried 2-0 Vicryl, deep dermal 3-0 PDS, and running 3-0 Monocryl subcuticular stitch. The site of the umbilicus was determined. The umbilicus brought forth. Because of its length, it was trimmed shorter and then inset with 3-0 PDS and 3-0 Monocryl. All incisions were dressed with skin glue, lcaey, ABD pads. Abdominal binder applied. Anesthesia reversed. The patient tolerated the procedure well. AARTI/RAY #: [id number] [facility] Office Visiton 12-12-2023 Follow-up visit [id number] Ishan Henning 1985 [facility] Provider Department Center 12/12/2023 [id number] TURPIN TYRON Hauser Family History Problem Relation Age of Onset No Known Problems Mother No Known Problems Father Hypertension Brother Cancer Father's Sister Cancer Father's Brother Family Status - Relation Status Age at Mother Father Brother Father's Sister Father's Brother Level of Service:82767 [place] OFFICE/OUTPATIENT ESTABLISHED MOD MDM 30 MIN Reason for Visit and Comments: Bradycardia [956934] - Pt here for six month follow up. [facility] Office Visiton 06-03-2023 Follow-up visit [id number] Ishan Henning 1985 [facility] Provider Department Center 06/03/2023 GRAICA CHATMAN Family History Problem Relation Age of Onset No Known Problems Mother No Known Problems Father Hypertension Brother Cancer Father's Sister Cancer Father's Brother Family Status - Relation Status Age at Mother Father Brother Father's Sister Father's Brother Level of Service:92702 [place] OFFICE/OUTPATIENT NEW MODERATE MDM 45 MINUTES Normal [facility] COVID + FLU Quick Testingon 03-16-2023 SARS-CoV-2 (COVID-19) RNA REBECCA+probe Ql (Unsp spec) Positive [facility] Other COVID + FLU Quick Testing Negative [facility] Other Office Visiton 03-14-2023 Follow-up visit [id number] Ishan Henning 1985 M Date Provider Department Center 03/14/2023 RENÉ NGUYEN CARD [facility] Family History Problem Relation Age of Onset No Known Problems Mother No Known Problems Father Hypertension Brother Cancer Father's Sister Cancer Father's Brother Family Status - Relation Status Age at Mother Father Brother Father's Sister Father's Brother Level of Service:19088 [place] OFFICE/OUTPATIENT NEW MODERATE MDM 45-59 MINUTES Normal [facility] VITAMIN B1 (THIAMINE)on Vit. B1, Whole Blood 199.8 nmol/L Normal 66.5-200.0 [facility] Comment on above: Performed By: #### V ITB1T #### [facility] [address] [place] [address] Dr. Nancy Hardy CBC AUTO DIFFon 05-11-2022 BASO # 0.1 103/ul Normal 0.0-0.1 [facility] Comment on above: Performed By: #### C BC #### [facility] [address] [place] [address] Dr. Nancy Hardy Basophils/100 WBC (Bld) 0.7 % Normal 0.2-2.0 [facility] Comment on above: Performed By: #### C BC #### [facility] [address] [place] [address] Dr. Nancy Hardy EO # 0.2 103/ul Normal 0.0-0.7 [facility] Comment on above: Performed By: #### C BC #### [facility] [address] [place] [address] Dr. Nancy Hardy Eosinophils/100 WBC (Bld) 2.3 % Normal 0.9-7.0 [facility] Comment on above: Performed By: #### C BC #### [facility] [address] [place] [address] Dr. Nancy Hardy Erythrocyte distribution width (RBC) [Ratio] 12.7 % Normal 11.0-15.0 [facility] Comment on above: Performed By: #### C BC #### [facility] [address] [place] [address] Dr. Nancy Hardy Hematocrit (Bld) [Volume fraction] 42.8 % Normal 42.0-54.0 [facility] Comment on above: Performed By: #### C BC #### [facility] [address] [place] [address] Dr. Nancy Hardy Hemoglobin (Bld) [Mass/Vol] 15.5 g/dL Normal 14.0-18.0 [facility] Comment on above: Performed By: #### C BC #### [facility] [address] [place] [address] Dr. Nancy Hardy IG # 0.01 10e3/ul Normal 0.00-0.03 [facility] Comment on above: Performed By: #### C BC #### [facility] [address] [place] [address] Dr. Nancy Hardy IG % 0.1 % Normal 0.0-0.5 [facility] Comment on above: Performed By: #### C BC #### [facility] [address] [place] [address] Dr. Nancy Hardy LYMPH # 1.6 103/ul Normal 1.2-3.8 [facility] Comment on above: Performed By: #### C BC #### [facility] [address] [place] [address] Dr. Nancy Hardy Lymphocytes/100 WBC (Bld) 20.7 % Normal 20.5-60.0 [facility] Comment on above: Performed By: #### C BC #### [facility] [address] [place] [address] Dr. Nancy Hardy MANUAL DIFF REQ NO Normal [facility] Comment on above: Performed By: #### C BC #### [facility] [address] [place] [address] Dr. Nancy Hardy MCH (RBC) [Entitic mass] 31.8 pg Normal 25.9-34.0 [facility] Comment on above: Performed By: #### C BC #### [facility] [address] [place] [address] Dr. Nancy Hardy MCHC (RBC) [Mass/Vol] 36.2 g/dL Critically high 29.9-35.2 [facility] Comment on above: Performed By: #### C BC #### [facility] [address] [place] [address] Dr. Nancy Hardy MCV (RBC) [Entitic vol] 87.9 fL Normal 80.0-94.0 [facility] Comment on above: Performed By: #### C BC #### [facility] [address] [place] [address] Dr. Nancy Hardy MONO # 0.5 103/ul Normal 0.3-0.8 [facility] Comment on above: Performed By: #### C BC #### [facility] [address] [place] [address] Dr. Nancy Hardy Monocytes/100 WBC (Bld) 6.6 % Normal 1.7-12.0 [facility] Comment on above: Performed By: #### C BC #### [facility] [address] [place] [address] Dr. Nancy Hardy NEUT # 5.4 103/ul Normal 1.4-6.5 [facility] Comment on above: Performed By: #### C BC #### [facility] [address] [place] [address] Dr. Nancy Hardy Neutrophils/100 WBC (Bld) 69.6 % Normal 43.0-75.0 [facility] Comment on above: Performed By: #### C BC #### [facility] [address] [place] [address] Dr. Nancy Hardy Platelet mean volume (Bld) [Entitic vol] 9.9 fL Normal 9.5-13.5 [facility] Comment on above: Performed By: #### C BC #### [facility] [address] [place] [address] Dr. Nancy Hardy PLT 250 103/ul Normal 150-450 [facility] Comment on above: Performed By: #### C BC #### [facility] [address] [place] [address] Dr. Nancy Hardy RBC 4.87 106/ul Normal 4.70-6.10 [facility] Comment on above: Performed By: #### C BC #### [facility] [address] [place] [address] Dr. Nancy Hardy WBC 7.7 103/ul Normal 4.0-11.0 [facility] Comment on above: Performed By: #### C BC #### [facility] [address] [place] [address] Dr. Nancy Hardy FERRITINon 05-11-2022 Ferritin [Mass/Vol] 53.0 ng/mL Normal 26.0-388.0 [facility] Comment on above: Performed By: #### A LT, AST #### [facility] [address] [place] [address] Dr. Nancy Hardy IRON AND TIBCon 05-11-2022 % SATURATION 44.3 % Normal [facility] Comment on above: Performed By: #### B 12FOL, VITAD, FETIBC, FERR #### [facility] [address] [place] [address] Dr. Nancy Hardy Iron [Mass/Vol] 158.0 ug/dL Normal 65.0-175.0 [facility] Comment on above: Performed By: #### B 12FOL, VITAD, FETIBC, FERR #### [facility] [address] [place] [address] Dr. Nancy Hardy TIBC DIRECT 357.0 ug/dL Normal 250.0-450.0 [facility] Comment on above: Performed By: #### B 12FOL, VITAD, FETIBC, FERR #### [facility] [address] [place] [address] Dr. Nancy Hardy MAGNESIUMon 05-11-2022 Magnesium [Mass/Vol] 1.9 mg/dL Normal 1.8-2.4 [facility] Comment on above: Performed By: #### M G, CMP, PHOS #### [facility] [address] [place] [address] Dr. Nancy Hardy PHOSPHORUSon 05-11-2022 Phosphate [Mass/Vol] 3.9 mg/dL Normal 2.6-4.7 [facility] Comment on above: Performed By: #### M G, CMP, PHOS #### [facility] [address] [place] [address] Dr. Nancy Hardy PROF 14(COMP METB)on 023 Albumin [Mass/Vol] 4.0 g/dL Normal 3.4-5.0 [facility] Comment on above: Performed By: #### M G, CMP, PHOS #### [facility] [address] [place] [address] Dr. Nancy Hardy Albumin/Globulin [Mass ratio] 1.3 {ratio} Normal [facility] Comment on above: Performed By: #### M G, CMP, PHOS #### [facility] [address] [place] [address] Dr. Nancy Hardy ALP [Catalytic activity/Vol] 76 U/L Normal 46-116 [facility] Comment on above: Performed By: #### M G, CMP, PHOS #### [facility] [address] [place] [address] Dr. Nancy Hardy ALT [Catalytic activity/Vol] 35 U/L Normal 16-63 [facility] Comment on above: Performed By: #### M G, CMP, PHOS #### [facility] [address] [place] [address] Dr. Nancy Hardy Anion gap [Moles/Vol] 14.6 mmol/L Normal [facility] Comment on above: Performed By: #### M G, CMP, PHOS #### [facility] [address] [place] [address] Dr. Nancy Hardy AST [Catalytic activity/Vol] 33 U/L Normal 15-37 [facility] Comment on above: Performed By: #### M G, CMP, PHOS #### [facility] [address] [address] [address] Nancy Hardy Bilirubin [Mass/Vol] 1.4 mg/dL Critically high 0.2-1.0 [facility] Comment on above: Performed By: #### M G, CMP, PHOS #### [facility] [address] [place] [address] Dr. Nancy Hardy Calcium [Mass/Vol] 9.6 mg/dL Normal 8.5-10.1 [facility] Comment on above: Performed By: #### M G, CMP, PHOS #### [facility] [address] [place] [address] Dr. Nancy Hardy Chloride [Moles/Vol] 104 mmol/L Normal 98-107 [facility] Comment on above: Performed By: #### M G, CMP, PHOS #### [facility] [address] [place] [address] Dr. Nancy Hardy CO2 [Moles/Vol] 28.4 mmol/L Normal 21.0-32.0 [facility] Comment on above: Performed By: #### M G, CMP, PHOS #### [facility] [address] [place] [address] Dr. Nancy Hardy Creatinine [Mass/Vol] 0.91 mg/dL Normal 0.70-1.30 [facility] Comment on above: Performed By: #### M G, CMP, PHOS #### [facility] [address] [place] [address] Dr. Nancy Hardy EGFR-AF SAMMARINESE >60 Normal >=60 [facility] Comment on above: Performed By: #### M G, CMP, PHOS #### [facility] [address] [place] [address] Dr. Nancy Hardy EGFR-NON AF SAMMARINESE >60 Normal >=60 [facility] Comment on above: Performed By: #### M G, CMP, PHOS #### [facility] [address] [address] [address] Nancy Hardy Globulin (S) [Mass/Vol] 3.2 g/dL Normal [facility] Comment on above: Performed By: #### M G, CMP, PHOS #### [facility] [address] [address] [address] Nancy Hardy Glucose [Mass/Vol] 88 mg/dL Normal 74-106 [facility] Comment on above: Performed By: #### M G, CMP, PHOS #### [facility] [address] [address] [address] Nancy Hardy Potassium [Moles/Vol] 4.0 mmol/L Normal 3.5-5.1 [facility] Comment on above: Performed By: #### M G, CMP, PHOS #### [facility] [address] [address] [address] Nancy Hardy Protein [Mass/Vol] 7.2 g/dL Normal 6.4-8.2 [facility] Comment on above: Performed By: #### M G, CMP, PHOS #### [facility] [address] [address] [address] Nancy Hardy Sodium [Moles/Vol] 143 mmol/L Normal 136-145 [facility] Comment on above: Performed By: #### M G, CMP, PHOS #### [facility] [address] [address] [address] Nancy Hardy Urea nitrogen [Mass/Vol] 21.0 mg/dL Critically high 7.0-18.0 [facility] Comment on above: Performed By: #### M G, CMP, PHOS #### [facility] [address] [address] [address] Nancy Hardy Urea nitrogen/Creatinin e [Mass ratio] 23.1 mg/mg Normal [facility] Comment on above: Performed By: #### M G, CMP, PHOS #### [facility] [address] [address] [address] Nancy Hardy VIT B12 AND FOLATEon 023 Cobalamin (Vitamin B12) [Mass/Vol] 1023.0 pg/mL Critically high 193.0-986.0 [facility] Comment on above: Performed By: #### B 12FOL, VITAD, FETIBC, FERR #### [facility] [address] [place] [address] Dr. Nancy Hardy FOLATE 20.70 ng/mL Normal 8.60-58.90 [facility] Comment on above: Performed By: #### B 12FOL, VITAD, FETIBC, FERR #### [facility] [address] [address] [address] Nancy Hardy VITAMIN D 25 OHon 05-11-2022 VIT D 25-OH 54.2 ng/mL Normal [facility] Comment on above: Performed By: #### B 12FOL, VITAD, FETIBC, FERR #### [facility] [address] [place] [address] Dr. Nancy Hardy VIT D RANGES SEE BELOW Normal [facility] Comment on above: Result Comment: <20 ng/mL Vit D deficient 20 - <30 ng/mL Vit D insufficient 30 - 100 ng/mL Vit D sufficient >100 ng/mL Potential Toxicity Performed By: #### B 12FOL, VITAD, FETIBC, FERR #### [facility] [address] [place] [address] Dr. Nancy Hardy SGOTon 08-23-2021 AST [Catalytic activity/Vol] 21 U/L Normal 15-37 [facility] Comment on above: Performed By: #### A LT, AST #### [facility] [address] [place] [address] Dr. Nancy Hardy SGPTon 08-23-2021 ALT [Catalytic activity/Vol] 30 U/L Normal 16-63 [facility] Comment on above: Performed By: #### A LT, AST #### [facility] [address] [place] [address] Dr. Nancy Hardy Complete Blood Count with Au to Diffon 05-21-2021 Basophils (Bld) [#/Vol] 0.05 10*3/uL Normal 0.00-0.20 [facility] [employer] Comment on above: Performed By: #### C MP, FE Prof, VITD, CBCAD, PHOS, MG, FERR #### [facility] [address], [place] [id number] Basophils/100 WBC (Bld) 0.8 % Normal [facility] [employer] Comment on above: Performed By: #### C MP, FE Prof, VITD, CBCAD, PHOS, MG, FERR #### [facility] [address], [place] [id number] Eosinophils (Bld) [#/Vol] 0.17 10*3/uL Normal 0.02-0.50 [facility] [employer] Comment on above: Performed By: #### C MP, FE Prof, VITD, CBCAD, PHOS, MG, FERR #### [facility] [address], [place] [id number] Eosinophils/100 WBC (Bld) 2.8 % Normal [facility] [employer] [facility] Comment on above: Performed By: #### C MP, FE Prof, VITD, CBCAD, PHOS, MG, FERR #### [facility] [address], [place] [id number] Erythrocyte distribution width (RBC) [Ratio] 12.6 % Normal 11.0-15.0 [facility] [employer] Comment on above: Performed By: #### C MP, FE Prof, VITD, CBCAD, PHOS, MG, FERR #### [facility] [address], [place] [id number] Hematocrit (Bld) [Volume fraction] 45.3 % Normal 38.5-50.0 [facility] [employer] Comment on above: Performed By: #### C MP, FE Prof, VITD, CBCAD, PHOS, MG, FERR #### [facility] [address], [place] [id number] Hemoglobin (Bld) [Mass/Vol] 15.3 g/dL Normal 13.0-17.1 [facility] [employer] Comment on above: Performed By: #### C MP, FE Prof, VITD, CBCAD, PHOS, MG, FERR #### [facility] [address], [place] [id number] Lymphocytes (Bld) [#/Vol] 1.5 10*3/uL Normal 0.9-3.9 [facility] Comment on above: Performed By: #### C MP, FE Prof, VITD, CBCAD, PHOS, MG, FERR #### [facility] [address], [place] [id number] Lymphocytes/100 WBC (Bld) 24.8 % Normal [facility] Comment on above: Performed By: #### C MP, FE Prof, VITD, CBCAD, PHOS, MG, FERR #### [facility] [address], [place] [id number] MCH (RBC) [Entitic mass] 31.8 pg Normal 27.0-33.0 [facility] Comment on above: Performed By: #### C MP, FE Prof, VITD, CBCAD, PHOS, MG, FERR #### [facility] [address], [place] [id number] MCHC (RBC) [Mass/Vol] 33.8 g/dL Normal 32.0-36.0 [facility] Comment on above: Performed By: #### C MP, FE Prof, VITD, CBCAD, PHOS, MG, FERR #### [facility] [address], [place] [id number] MCV (RBC) [Entitic vol] 94 fL Normal 80-100 [facility] Comment on above: Performed By: #### C MP, FE Prof, VITD, CBCAD, PHOS, MG, FERR #### [facility] [address], [place] [id number] Monocytes (Bld) [#/Vol] 0.4 10*3/uL Normal 0.2-0.9 [facility] Comment on above: Performed By: #### C MP, FE Prof, VITD, CBCAD, PHOS, MG, FERR #### [facility] [address], [place] [id number] Monocytes/100 WBC (Bld) 7.2 % Normal [facility] Comment on above: Performed By: #### C MP, FE Prof, VITD, CBCAD, PHOS, MG, FERR #### [facility] [address], [place] [id number] Neutrophils (Bld) [#/Vol] 3.9 10*3/uL Normal 1.5-7.8 [facility] Comment on above: Performed By: #### C MP, FE Prof, VITD, CBCAD, PHOS, MG, FERR #### [facility] [address], [place] [id number] Neutrophils/100 WBC (Bld) 64.1 % Normal [facility] Comment on above: Performed By: #### C MP, FE Prof, VITD, CBCAD, PHOS, MG, FERR #### [facility] [address], [place] [id number] Platelet mean volume (Bld) [Entitic vol] 10.60 fL Normal 7.50-12.50 [facility] Comment on above: Performed By: #### C MP, FE Prof, VITD, CBCAD, PHOS, MG, FERR #### [facility] [address], [place] [id number] Platelets (Bld) [#/Vol] 237 10*3/uL Normal 140-400 [facility] Comment on above: Performed By: #### C MP, FE Prof, VITD, CBCAD, PHOS, MG, FERR #### [facility] [address], [place] [id number] RBC (Bld) [#/Vol] 4.81 10*6/uL Normal 4.20-5.80 [facility] Comment on above: Performed By: #### C MP, FE Prof, VITD, CBCAD, PHOS, MG, FERR #### [facility] [address], [place] [id number] RDW-SD 43.5 fL Normal 37.0-50.0 [facility] Comment on above: Performed By: #### C MP, FE Prof, VITD, CBCAD, PHOS, MG, FERR #### [facility] [address], [place] [id number] WBC (Bld) [#/Vol] 6.1 10*3/uL Normal 3.8-11.0 [facility] Comment on above: Performed By: #### C MP, FE Prof, VITD, CBCAD, PHOS, MG, FERR #### [facility] [address], [place] [id number] Comprehensive Metabolic Pane jessica 05-21-2021 Albumin [Mass/Vol] 4.6 g/dL Normal 3.6-5.1 [facility] Comment on above: Performed By: #### C MP, FE Prof, VITD, CBCAD, PHOS, MG, FERR #### [facility] [address], [place] [id number] Albumin/Globulin [Mass ratio] 2.3 {ratio} Normal 1.0-2.5 [facility] Comment on above: Performed By: #### C MP, FE Prof, VITD, CBCAD, PHOS, MG, FERR #### [facility] [address], [place] [id number] ALP [Catalytic activity/Vol] 91 U/L Normal 40-129 [facility] Comment on above: Performed By: #### C MP, FE Prof, VITD, CBCAD, PHOS, MG, FERR #### [facility] [address], [place] [id number] ALT [Catalytic activity/Vol] 21 U/L Normal 9-46 [facility] Comment on above: Result Comment: 03/14 Female reference range changed. Performed By: #### C MP, FE Prof, VITD, CBCAD, PHOS, MG, FERR #### [facility] [address], [place] [id number] Anion gap [Moles/Vol] 17 mmol/L Normal 12-20 [facility] Comment on above: Result Comment: Effe ctive 04/19/2019 reference range changed. Performed By: #### C MP, FE Prof, VITD, CBCAD, PHOS, MG, FERR #### [facility] [address], [place] [id number] AST [Catalytic activity/Vol] 23 U/L Normal 10-40 [facility] Comment on above: Performed By: #### C MP, FE Prof, VITD, CBCAD, PHOS, MG, FERR #### [facility] [address], [place] [id number] Bilirubin [Mass/Vol] 0.57 mg/dL Normal 0.30-1.20 [facility] Comment on above: Performed By: #### C MP, FE Prof, VITD, CBCAD, PHOS, MG, FERR #### [facility] [address], [place] [id number] BUN/CREA 25 Ratio High 6-22 [facility] Comment on above: Performed By: #### C MP, FE Prof, VITD, CBCAD, PHOS, MG, FERR #### [facility] [address], [place] [id number] Calcium [Mass/Vol] 9.7 mg/dL Normal 8.6-10.2 [facility] Comment on above: Performed By: #### C MP, FE Prof, VITD, CBCAD, PHOS, MG, FERR #### [facility] [address], [place] [id number] Chloride [Moles/Vol] 106 mmol/L Normal 98-107 [facility] Comment on above: Performed By: #### C MP, FE Prof, VITD, CBCAD, PHOS, MG, FERR #### [facility] [address], [place] [id number] CO2 [Moles/Vol] 24 mmol/L Normal 20-31 [facility] Comment on above: Performed By: #### C MP, FE Prof, VITD, CBCAD, PHOS, MG, FERR #### [facility] [address], [place] [id number] Creatinine [Mass/Vol] 0.8 mg/dL Normal 0.7-1.4 [facility] Comment on above: Performed By: #### C MP, FE Prof, VITD, CBCAD, PHOS, MG, FERR #### [facility] [address], [place] [id number] eGFRAA 144 mL/min/1.73m2 Normal >60 [facility] Comment on above: Performed By: #### C MP, FE Prof, VITD, CBCAD, PHOS, MG, FERR #### [facility] [address], [place] [id number] eGFRNAA 119 mL/min/1.73m2 Normal >60 [place] [facility] [place] [employer] [facility] Comment on above: Performed By: #### C MP, FE Prof, VITD, CBCAD, PHOS, MG, FERR #### [facility] [address], [place] [id number] Globulin (S) [Mass/Vol] 2.0 g/dL Normal 1.9-3.7 [facility] [facility] Comment on above: Performed By: #### C MP, FE Prof, VITD, CBCAD, PHOS, MG, FERR #### [facility] [address], [place] [id number] Glucose [Mass/Vol] 92 mg/dL Normal 65-99 Suzi blank [place] [employer] [facility] Comment on above: Result Comment: For FASTING Glucose --- ADA reference ranges: Normal 65-99 mg/dl Prediabetes 100-125 Diabetes >/= 126 Performed By: #### C MP, FE Prof, VITD, CBCAD, PHOS, MG, FERR #### [facility] [address], [place] [id number] Potassium [Moles/Vol] 4.5 mmol/L Normal 3.5-5.5 [facility] [facility] Comment on above: Performed By: #### C MP, FE Prof, VITD, CBCAD, PHOS, MG, FERR #### [facility] [address], [place] [id number] Protein [Mass/Vol] 6.6 g/dL Normal 6.1-8.1 [facility] [place] [employer] [facility] Comment on above: Performed By: #### C MP, FE Prof, VITD, CBCAD, PHOS, MG, FERR #### [facility] [address], [place] [id number] Sodium [Moles/Vol] 143 mmol/L Normal 135-146 [facility] [place] [employer] [facility] Comment on above: Performed By: #### C MP, FE Prof, VITD, CBCAD, PHOS, MG, FERR #### [facility] [address], [place] [id number] Urea nitrogen [Mass/Vol] 19 mg/dL Normal 7-25 [facility] [facility] Comment on above: Performed By: #### C MP, FE Prof, VITD, CBCAD, PHOS, MG, FERR #### [facility] [address], [place] [id number] Ferritinon 05-21-2021 FERR 38.4 ng/mL Normal 30.0-400.0 [facility] [facility] Comment on above: Performed By: #### C MP, FE Prof, VITD, CBCAD, PHOS, MG, FERR #### [facility] [address], [place] [id number] Iron Profileon 05-21-2021 %FESAT 22 % Normal 15-60 [facility] [facility] Comment on above: Performed By: #### C MP, FE Prof, VITD, CBCAD, PHOS, MG, FERR #### [facility] [address], [place] [id number] FE 78 ug/dL Normal 50-180 [facility] [facility] Comment on above: Result Comment: Refe rence range change 02/28/2017. Prior reference range F 37-145 ug/dL, M 59-158 ug/dL. Performed By: #### C MP, FE Prof, VITD, CBCAD, PHOS, MG, FERR #### [facility] [address], [place] [id number] TIBC 353 ug/dL Normal 250-425 [facility] [facility] Comment on above: Performed By: #### C MP, FE Prof, VITD, CBCAD, PHOS, MG, FERR #### [facility] [address], [place] [id number] UIBC 275 ug/dL Normal 112-347 [facility] [facility] Comment on above: Performed By: #### C MP, FE Prof, VITD, CBCAD, PHOS, MG, FERR #### [facility] [address], [place] [id number] Magnesiumon 05-21-2021 Magnesium [Mass/Vol] 2.0 mg/dL Normal 1.5-2.3 [facility] [facility] Comment on above: Performed By: #### C MP, FE Prof, VITD, CBCAD, PHOS, MG, FERR #### [facility] [address], [place] [id number] Phosphoruson 05-21-2021 Phosphate [Mass/Vol] 3.3 mg/dL Normal 2.2-4.4 [facility] [facility] Comment on above: Performed By: #### C MP, FE Prof, VITD, CBCAD, PHOS, MG, FERR #### [facility] [address], [place] [id number] Vitamin B12/Folateon 022 Cobalamin (Vitamin B12) [Mass/Vol] 890 pg/mL Normal 211-946 [facility] [facility] Comment on above: Performed By: #### B 12/Fol #### [facility] [address], [place] [id number] FOL >20.0 Normal [facility] [facility] Comment on above: Result Comment: Refe rence range change 02/28/2017. Prior reference range F 4.8-37.3 ng/mL, M 4.5-32.2 ng/mL. Performed By: #### B 12/Fol #### [facility] [address], [place] [id number] Vitamin D 25-OHon 05-21-2021 VIT D 25 OH 45 ng/ml Normal >29 [facility] [facility] Comment on above: Result Comment: Trixie min D Status Deficiency <20 ng/mL Insufficiency 20-29 ng/mL Optimal 30-100 ng/mL Possible Toxicity >=150 ng/mL Performed By: #### C MP, FE Prof, VITD, CBCAD, PHOS, MG, FERR #### [facility] [address], [place] [id number] ERCPon 01-06-2020 ERCP [facility] Department of Radiology [address] [place] [address] Patient Name: ISHAN HENNING : 1985 Sex: M Age: Race: White Pt. Location: [facility] Patient Status: Ordered Date: 12/09/2019 4:10:00 PM [...] reports Electronically signed: Ashok Schneider. Transcribed by: [email or web address], User Resident: MILANA BRIGHT Electronically Signed by: ASHOK SCHNEIDER @ 01/06/2020 10:01 AM I personally read this/these film(s) with this resident Normal [facility] Comment on above: Order Comment: , , = ========= , Ordering Provider - ROMMEL CELAYA MD , GI Letteron 01-06-2020 GI Letter [facility] Academic Department of Medicine Academic Fax: Division of [phone] Gastroenterology Clinic Phone: [facility] [phone] [facility] Fax: Center [phone] [address] RE: Patient Name: Ishan Henning MR #: [id number] Date of : 1985 Date of Service:01/06/2020 Carolyn Laws M.D. [facility] [address] [place] [address], [address] [place] [address] Laws, I had the pleasure [...] Sincerely, Electronically Signed by: Zeb Cesar M.D. 01/16/2020 07:55 P _ Zeb Cesar M.D. Date Dict: 01/06/2020/08:57 A/Zeb Cesar M.D. Date Trans: 01/06/2020 09:23 A/mmo Revised: 01/06/2020 11:54 A/carmen Copy/paste [id number] cc: Brown Sanchez M.D. [facility], [address] [facility] [address] Carolyn Laws M.D. [facility] [address] [place] [address], [address] [facility] [address] Normal [facility] GI Letteron 11-26-2019 GI Letter [facility] Academic Department of Medicine Academic Fax: Division of [phone] Gastroenterology Clinic Phone: [facility] [phone] [facility] Fax: [facility] [phone] [address] RE: Patient Name: Ishan Henning MR #: [id number] Date of : 1985 Date of Service:11/25/2019 Carolyn Laws M.D. [facility] [address] [place] [address], [address] [place] [address] Laws, I had the pleasure [...] Anesthesia team and indomethacin suppositories [address] JUDGE Rommel Celaya M.D. PROCEDURE IN DETAIL After [...] then removed over the guidewire and a 10-Salvadorean x 10 cm plastic biliary stent was [...] bile duct stone was identified. Biliary stent 10-Salvadorean x 10 cm was placed into the [...] 11:53 P/mmo Revised: 11/26/2019 07:36 A/pa Copy/paste [id number] cc: Carolyn Laws M.D. [facility] [address] [place] [address], [address] [facility] [address] [place] [facility] ERCPon 11-25-2019 ERCP [facility] Department of Radiology [address] [place] [address] Patient Name: ISHAN HENNING : [...] details. Electronically signed: Jojo Rodriguez. Transcribed by: [email or web address], User Resident: Electronically Signed by: JOJO RODRIGUEZ @ 11/26/2019 06:51 AM Normal [facility] Comment on above: Order Comment: ERCP Vital Signs Date Time Vital Sign Value Performing Clinician Facility 02-04-2024 07:42-0400 Body height 185.4 cm Poncho Bobo MD Work Phone: [facility] 02-04-2024 07:42-0400 Body mass index (BMI) [Ratio] 33.51 kg/m2 Poncho Bobo MD Work Phone: [facility] 02-04-2024 07:42-0400 Body temperature 97.81 [degF] Poncho Bobo MD Work Phone: [facility] 02-04-2024 07:42-0400 Body weight 115.21 kg Poncho Bobo MD Work Phone: [facility] 02-04-2024 07:42-0400 Diastolic blood pressure 66 mm[Hg] Poncho Bobo MD Work Phone: [facility] 02-04-2024 07:42-0400 Heart rate 82 /min Poncho Bobo MD Work Phone: [facility] 02-04-2024 07:42-0400 Respiratory rate 18 /min Poncho Bobo MD Work Phone: [facility] 02-04-2024 07:42-0400 SaO2% (BldA) [Mass fraction] 98 % Poncho Bobo MD Work Phone: [facility] 02-04-2024 07:42-0400 Systolic blood pressure 124 mm[Hg] Poncho Bobo MD Work Phone: [facility] 03-16-2023 11:05-0500 Body height 185.42 cm Saba Adhikari Other [employer] Other 03-16-2023 11:05-0500 Body mass index (BMI) [Ratio] 39.18 kg/m2 Saba Adhikari Other [employer] Other 03-16-2023 11:05-0500 Body temperature 97.9 [degF] Saba Adhikari Other [employer] Other 03-16-2023 11:05-0500 Body weight 134.72 kg Saba Adhikari Other [employer] Other 03-16-2023 11:05-0500 Diastolic blood pressure 71 mm[Hg] Saba Adhikari Other [employer] Other 03-16-2023 11:05-0500 Respiratory rate 18 /min Saba Adhikari Other [employer] Other 03-16-2023 11:05-0500 SaO2% (BldA) [Mass fraction] 97 % Saba Adhikari Other [employer] Other 03-16-2023 11:05-0500 Systolic blood pressure 112 mm[Hg] Saba Adhikari Other [employer] Other Encounters Encounter Date Encounter Type Care Provider Facility Start: 02-19-2024 End: 02-19-2024 Evaluation and management of inpatient STEVEN PRITCHETT [facility] Start: 02-19-2024 End: 02-19-2024 Evaluation and management of inpatient SIERRA JOSEPH [facility] Start: 02-04-2024 End: 02-04-2024 [facility] flowsheet Poncho Bobo MD Work Phone: [facility] Start: 02-04-2024 End: 02-04-2024 [facility] flowsheet Poncho Bobo MD Work Phone: [facility] Start: 02-04-2024 End: 02-04-2024 Office outpatient visit 15 minutes Poncho Bobo MD Work Phone: [facility] Comment on above: Bradycardia (Primary Dx); Class 1 obesity due to excess calories without serious comorbidity with body mass index (BMI) of 33.0 to 33.9 in adult Start: 12-12-2023 End: 12-12-2023 ambulatory [facility] Start: 08-27-2023 End: 08-27-2023 ambulatory PONCHO BOBO Not Available Start: 08-27-2023 Patient encounter procedure Poncho Bobo MD Work Phone: [facility] Start: 07-02-2023 End: 07-02-2023 ambulatory GUTIERREZ COBB Not Available Start: 06-03-2023 End: 06-03-2023 ambulatory GRACIA DOYLE [facility] Start: 03-16-2023 End: 03-16-2023 ambulatory Saba Adhikari Other [employer] Other Start: 03-16-2023 Office outpatient vi sit 15 minutes Saba Adhikari [facility] Start: 03-14-2023 End: 03-14-2023 ambulatory RENÉ [facility] Start: 05-11-2022 End: 05-12-[address] PONCHO BOBO Facility:[facility] Start: 03-18-2022 End: 03-19-[address] PONCHO BOBO Facility:[facility] Start: 08-23-2021 End: 08-24-[address] PONCHO BOBO Facility: Start: 01-06-2020 End: 01-07-2020 Patient encounter procedure ZEB Soto PRISCAPATY Facility:[facility] Procedures Date Procedure Procedure Detail Performing Clinician Start: 01-06-2020 ANES UPR GI NDSC PX ERCP KEISHA CHANO Plan of Treatment Date Care Activity Detail Author Start: 08-04-2024 End: 08-04-2024 Patient encounter procedure 08/04/2024 7:15 AM EDT Office Visit [facility] [address] [place] [phone] Poncho Bobo MD [address] [place] [phone] [facility] Start: 02-04-2024 End: 02-04-2024 Patient encounter procedure 02/04/2024 7:30 AM EDT [facility] [address] [place] [phone] Poncho Bobo MD [address] [place] [phone] [facility] Comment on above: Arrived Start: 12-14-2023 Influenza vaccination Influenza Vacc ine (#1) [facility] Payers Date Payer Category Payer Shira HENNING 2020 [facility] O (unspecified) [employer] [id number] 2009 Unknown [id number] 1985 Unknown [id number] 1985 Unknown [id number] 1985 Unknown [id number] 1985 Unknown [id number] 1985 Unknown [id number] 1985 Unknown [id number] 1958 Private Health Insurance [id number] Social History Date Type Detail Facility Unknown if ever smoked [employer] Other Start: 08-26-2023 End: 02-04-2024 Sex Assigned At [facility] Start: 09-30-2022 Tobacco smoking status ORIS Never smoked tobacco [facility] Start: 09-30-2022 Tobacco use and exposure Smokeless tobacco non-user [facility] Start: 08-27-2023 End: 02-04-2024 Alcoholic beverage intake Ex-drinker (finding) [facility] Start: 08-26-2023 End: 08-27-2023 Alcoholic beverage intake [facility] Do you belong to any clubs or organizations such as spiritism groups, unions, fraternal or athletic groups, or school groups? No [facility] Are you now , , , , never or living with a partner? Never [facility] How often to you hav e a drink containing alcohol? 2-4 times a month [facility] How many standard dr inks containing alcohol do you have on a typical day? 1 or 2 [facility] How often do you hav e 6 or more drinks on 1 occasion? Less than monthly [facility] How hard is it for y ou to pay for the very basics like food, housing, medical care, and heating Not hard at all [facility] Do you feel stress - tense, restless, nervous, or anxious, or unable to sleep at night because your mind is troubled all the time - these days [OSQ] Only a little [facility] (I/We) worried wheth er (my/our) food would run out before (I/we) got money to buy more. Never true [facility] Start: 10-02-2022 Alcohol Comment Caffeine intake: none [facility] Start: 1985 Sex assigned at Male [facility] Start: 06-26-2022 Gender identity Identifies as male gender (finding) [facility] Start: 09-11-2022 Sexual orientation Choose not to disclose [facility] History of Present illness Narrative 02-04-2024 Poncho Bobo MD - 02/04/2024 8:23 AM Rupinder Bobo MD - 02/04/2024 8:23 AM Rupinder Bobo MD - 02/04/2024 7:30 AM EDT Note Date & Type Note Facility 02-04-2024 History of Presen t illness Narrative Associated Problem(s): Class 1 obesity due to excess calories without serious comorbidity with body mass index (BMI) of 33.0 to 33.9 in adult Doing well with wegovy and continue. Discussed proper diet and regular aerobic exercise. Recommend Weight Watchers and need to limit calories and smaller portions. Need to increase activity and regular aerobic exercise several days a week for 30 minutes at a time. Associated Problem(s): Bradycardia No symptoms and monitor. Follow with cardiology. Images from the original note were not included. Subjective Patient ID: Ishan Henning is a 38 y.o. male who presents for Follow-up (6m f/up/Plastic surgery in 2 weeks). Follow up bradycardia and weight. Patient doing well today. Watch still gives irregular rhythm warning at times and occasional low heart rate but typically no symptoms. Remains active and runs several miles a day. Weight down 20 pounds since last visit and 46 pounds since June. On Wegovy and tolerating well. Tries to watch diet and eat healthy. Increased fruits and vegetables. Smaller portions and limits snacking. Tries to limit total daily calories. Review of Systems Constitutional: Negative for fatigue. Respiratory: Negative for cough, shortness of breath and wheezing. Cardiovascular: Negative for chest pain and palpitations. Gastrointestinal: Negative for abdominal pain, diarrhea, nausea and vomiting. Genitourinary: Negative for dysuria. Objective Physical Exam Constitutional: General: He is not in acute distress. Appearance: Normal appearance. HENT: Head: Normocephalic. Right Ear: Tympanic membrane and ear canal normal. Left Ear: Tympanic membrane and ear canal normal. Eyes: Extraocular Movements: Extraocular movements intact. Pupils: Pupils are equal, round, and reactive to light. Cardiovascular: Rate and Rhythm: Normal rate and regular rhythm. Heart sounds: No murmur heard. No friction rub. No gallop. Pulmonary: Breath sounds: Normal breath sounds. No wheezing, rhonchi or rales. Abdominal: General: Bowel sounds are normal. There is no distension. Palpations: Abdomen is soft. Tenderness: There is no abdominal tenderness. There is no guarding or rebound. Musculoskeletal: Left lower leg: No edema. Neurological: Mental Status: He is alert. Assessment/Plan Problem List Items Addressed This Visit Class 1 obesity due to excess calories without serious comorbidity with body mass index (BMI) of 33.0 to 33.9 in adult Doing well with wegovy and continue. Discussed proper diet and regular aerobic exercise. Recommend Weight Watchers and need to limit calories and smaller portions. Need to increase activity and regular aerobic exercise several days a week for 30 minutes at a time. Relevant Medications Semaglutide-Weight Management (Wegovy) 1 MG/0.5ML solution auto-injector Bradycardia - Primary No symptoms and monitor. Follow with cardiology. documented in this encounter [facility] Progress note 12-12-2023 Note Date & Type Note Facility 12-12-2023 Note [facility] Subjective Ishan Henning is a 37 y.o. year old male patient being seen for Bradycardia (Pt here for six month follow up.) Patient Active Problem List Diagnosis Chronic fatigue syndrome Disc disease, degenerative, lumbar or lumbosacral Displacement of lumbar intervertebral disc without myelopathy Greater trochanteric bursitis of right hip Indigestion Iron deficiency anemia Lumbar radiculopathy, right Morbid (severe) obesity due to excess calories (CMS/HCC) Narrowing of lumbar intervertebral disc space Other specified diseases of biliary tract Plantar wart of right foot Porokeratosis Sacroiliac inflammation (CMS/HCC) Skin sensation disturbance HPI Patient was evaluated in the past by the EP service for bradycardia and A-fib noted on smart watch. He was seen last in March 2023. 30-day event monitor and echo were ordered. Echo was normal except for LVH. The event monitor did not show any significant arrhythmias, he had 1 short event of [place] 1 during sleeping hours, otherwise he was in sinus rhythm with occasional sinus bradycardia and sinus tachycardia. According to him he recorded when his smart watch told him that he had irregular rhythm/A-fib but all of them showed sinus rhythm. He is back again because his smart watch lately showed frequent notifications of A-fib, but the heart rate recorded was between 60 and 80. He did not have any symptoms. The smart watch does not give him an EKG tracing at the time of the notification. He told me that he checked his pulse at the time and he did not feel major irregularity but some variation with respiration. He is still concerned that he might have A-fib. The patient had a history of obesity and he underwent gastric bypass surgery after which he lost significant weight. He is also currently on Wegovy for weight loss. He feels very good. He walks on a regular basis without any symptoms of chest pain or shortness of breath or dizziness or palpitation. Denies orthopnea or paroxysmal nocturnal dyspnea or legs edema. He does not drink caffeine or alcohol. He drinks good amount of water. He states that occasionally he feels tired over lunch but he never been told that he snores and he does not have history of sleep apnea. He denies smoking ROS All systems were reviewed and they were negative except for the positive findings noted above in the history Past Medical History: Diagnosis Date Acne GERD (gastroesophageal reflux disease) Obesity Past Surgical History: Procedure Laterality Date CHOLECYSTECTOMY GASTRIC BYPASS WISDOM TOOTH EXTRACTION Family History Problem Relation Name Age of Onset No Known Problems Mother No Known Problems Father Hypertension Brother Cancer Father's Sister Cancer Father's Brother Social History Tobacco Use Smoking status: Never Smokeless tobacco: Never Substance Use Topics Alcohol use: Yes Comment: occasional Allergies No Known Allergies Medications Current Outpatient Medications: doxycycline (Doryx) 100 mg EC tablet, Take 100 mg by mouth in the morning and at bedtime. Do not crush or chew. Take with a full glass of water and do not lie down for at least 30 minutes after., Disp: , Rfl: omeprazole (PriLOSEC) [address] capsule, Take 20 mg by mouth before breakfast. Do not crush or chew., Disp: , Rfl: Wegovy 2.4 mg/0.75 mL pen injector, , Disp: , Rfl: Objective Visit Vitals BP 103/61 (BP Location: Right arm, Patient Position: Sitting) Pulse 79 Ht 1.803 m (5' 11 ) Wt 121 kg (267 lb) SpO2 97% BMI 37.24 kg/m??? Smoking Status Never BSA 2.46 m??? Physical exam: GENERAL: alert and oriented x3, well developed, in no acute distress. HEAD: atraumatic, normocephalic. EYES: BARRY, EOMI. NECK: trachea midline, no JVD present, no carotid bruits present. CARDIAC: S1, S2 present. RRR. No murmur, rubs, or gallops. RESPIRATORY: CTAB, no increased effort of breathing, no rales, rhonchi, or wheezing. ABDOMEN: soft, nontender, nondistended. EXTREMITIES: no lower extremity edema, peripheral pulses are 2+ bilaterally. No rash/skin discoloration present. NEURO: strength/sensation equal and symmetric in bilateral upper and lower extremities. PSYCH: appropriate mood, affect, and judgement. Recent Labs labs 06/02/2023 White blood count 6.1, hemoglobin 14.7, hematocrit 43.6, platelets 258 Sodium 143, potassium 3.9, BUN 29, creatinine 0.9, GFR above 60, glucose 84, calcium 9.3 Magnesium 1.9, phosphorus 4 AST 20, ALT 27, alk phos 67, total protein 7, albumin 3.8 Vitamin D 55.2 Imaging and other tests EK03/14/2023 showed normal sinus rhythm with sinus arrhythmia, heart rate 79 bpm. Normal EKG Echo: 03/28/2023 Stress test: Cardiac cath: Event Monitor: 03/14/2023 - 04/13/2023 Cardiac MRI: CX ray: Assessment/Plan Irregular heart rhythm reported by his smart watch, not associated with EKG tracing. (more content not included)... [facility] Progress note 06-03-2023 Note Date & Type Note Facility 06-03-2023 Note [facility] Consult Note Reason for visit: new pt, bradycardia HPI: Ishan Henning is a 37 y.o. year old with past medical history of bruxism, hx gastric bypass 05/2018 , cholecystectomy 11/2019. He was referred to our clinic for [...] pain, shortness of breath, [place], LE edema, palpitations. he was seen by René BARBER and a 30-day event monitor was ordered along with an echocardiogram. Patient here for follow up echo and event monitor. Still denies chest pain, SOB, and palpitations. His Apple Watch still gives him notifications of irregular rhythm and afib. Had labs last month. current event monitor reveals the absence of any A-fib and no symptoms were recorded during the time. no SVT or VT T noted occasional PVCs and PACs seen with 1 episode of AV block noted. echocardiogram as noted below did not reveal any structural abnormality PMH: No past medical history on file. PSH: Past Surgical History: Procedure Laterality Date CHOLECYSTECTOMY GASTRIC BYPASS WISDOM TOOTH EXTRACTION SH: Social Determinants of Health Tobacco Use: Low Risk (03/14/2023) Patient History Smoking Tobacco Use: Never Smokeless Tobacco Use: Never Passive Exposure: Not on file Alcohol Use: Not on file Financial Resource Strain: Not on file Food Insecurity: Not on file Transportation Needs: Not on file Physical Activity: Not on file Stress: Not on file Social Connections: Not on file Intimate Partner Violence: Not on file Depression: Not on file Housing Stability: Not on file Utilities: Not on file Allergies: No Known Allergies Weight: 132kg Visit Vitals BP 127/71 (BP Location: Right arm, Patient Position: Sitting) Pulse 77 Ht 1.803 m (5' 11 ) Wt 132 kg (291 lb) SpO2 97% BMI 40.59 kg/m??? Smoking Status Never BSA 2.57 m??? Meds: Current Outpatient Medications on File Prior to Visit Medication Sig Dispense Refill doxycycline (Doryx) 100 mg EC tablet Take 100 mg by mouth in the morning and at bedtime. Do not crush or chew. Take with a full glass of water and do not lie down for at least 30 minutes after. omeprazole (PriLOSEC) [address] capsule Take 20 mg by mouth before breakfast. Do not crush or chew. Wegovy 2.4 mg/0.75 mL pen injector No current facility-administered medications on file prior to visit. ROS: Review of Systems Musculoskeletal: Positive for back pain. Neurological: Positive for light-headedness. All other systems reviewed and are negative. Physical Exam: Constitutional General Appearance: well-nourished, well-developed, [...] visit (from the past 4464 hour(s)). Echo: 03/28/23 Stress test: Coronary angiogram: @CATH@ [facility] Holter Assessment and Plan: Bradycardia -mostly nocturnal, will [...] or monitor unable to differentiate -HRV can oc (more content not included)... [facility] Evaluation note 03-16-2023 Note Date & Type [...] Follow up if new/worsening symptoms despite tx. [employer] Other Progress note 03-14-2023 Note Date & [...] All other systems reviewed and are negative. [facility] Progress note 03-14-2023 Note Date & Type Note Facility 03-14-2023 Note [facility] Consult Note Reason for visit: new [...] be seen fr (more content not included)... [facility] Evaluation note Note Date & Type Note Facility Evaluation note Diagnosis Annual physical exam- Primary Routine general medical examination at a health care facility Bradycardia- Primary Other specified cardiac dysrhythmias Class 1 obesity due to excess calories without serious comorbidity with body mass index (BMI) of 33.0 to 33.9 in adult documented in this encounter [facility] History general Narrative - Reported Note Date [...] Medical History acne vulgaris Medical History varicella 1992 Medical History bronchitis Medical History acne Medical History Acute cough Surgical History [place] teeth Surgical History Circumicsion by clam p procedure on Surgical History Bariatric surgery, sleeve /Ronnie r 02/2018 Surgical History scopic sleeve gastrectomy 0 Hospitalization History see sx history [employer] Other Summary Purpose Family History No Family History Records FoundNo Family History Records FoundNo Family History Records FoundNo Family History Records FoundNo Family History Records FoundNo Family History Records Found Advance Directives No Advanced Directives Records FoundNo Advanced Directives Records FoundNo Advanced Directives Records FoundNo Advanced Directives Records FoundNo Advanced Directives Records FoundNo Advanced Directives Records Found Procedure Findings Note MR#: [id number] [facility] Pt. Name: Ishan Henning Surgery Date: 11/25/2019 Room #: 0C Date of : 1985 PROCEDURE NOTE ATTENDING: Zeb Cesar M.D. PROCEDURE PERFORMED: ERCP with stent placement and biliary sphincterotomy. MEDICATIONS: General anesthesia administered by Anesthesia team and indomethacin suppositories [address] JUDGE: Rommel Celaya M.D. PROCEDURE IN DETAIL: After [...] se (more content not included)... Note MR#: [id number] [facility] Pt. Name: Ishan Henning Surgery Date: 01/06/2020 [...] and content) DATE CREATED AUTHOR 01/16/2020 [facility] DATE CREATED AUTHOR AUTHOR'S ORGANIZ ATION 05/22/2021 [facility] DATE CREATED AUTHOR AUTHOR'S ORGANIZ ATION 05/15/2022 [facility] DATE CREATED AUTHOR AUTHOR'S ORGANIZ ATION 08/30/2023 [facility] EPIC DATE CREATED AUTHOR AUTHOR'S ORGANIZ ATION 12/14/2023 [facility] DATE CREATED AUTHOR AUTHOR'S ORGANIZ ATION 02/21/2024 [facility] REASON FOR VISIT (unrecogniz ed section and content) Reason Comments Follow-up 6m f/upPlastic surge ry in 2 weeks Care Teams (unrecognized sec tion and content) [employer] Relationship Specialty Start Date End Date Poncho Bobo MD [address] [place] [id number] PCP - General Family Medicine 07/01/23 [employer] Relationship Specialty Start Date End Date Poncho Bobo MD [address] [place] [id number] PCP - General Family Medicine 07/01/23 FOR RECORDS PERTAINING TO PATIENTS WHO ARE [...] BE BASED ON THE PRIMARY CLINICAL RECORDS. [facility]. provides no warranty or guarantee of the accuracy or completeness of information in this document.
[2024-05-15 07:13] LABS: Basophils Absolute Auto 0.1 10^3/uL (0.0-0.1); Basophils Percent Auto 1.1 % (0.2-2.0); Eosinophils Absolute Auto 0.2 10^3/uL (0.0-0.7); Eosinophils Percent Auto 4.4 % (0.9-7.0); Hematocrit 46.1 % (42.0-54.0); Hemoglobin 15.2 g/dL (14.0-18.0); Lymphocytes Absolute Auto 1.2 10^3/uL (1.2-3.8); Lymphocytes Percent Auto 25.5 % (20.5-60.0); Mean Corpuscular Hemoglobin 31.4 pg (25.9-34.0); Mean Corpuscular Volume 95.2 fL (80.0-94.0); Mean Platelet Volume 9.6 fL (9.5-13.5); Monocytes Absolute Auto 0.3 10^3/uL (0.3-0.8); Monocytes Percent Auto 7.2 % (1.7-12.0); Neutrophils Absolute Auto 2.9 10^3/uL (1.4-6.5); Neutrophils Percent Auto 61.8 % (43.0-75.0); Platelet Count 251 10^3/uL (150-450); Red Blood Count 4.84 10^6/uL (4.70-6.10); Red Cell Distribution Width 12.6 % (11.0-15.0); White Blood Count 4.7 10^3/uL (4.0-11.0)
[2024-05-15 07:43] LABS: Alanine Aminotransferase 27 U/L (16-63); Albumin Globulin Ratio 1.2; Albumin Level 3.7 g/dL (3.4-5.0); Alkaline Phosphatase 82 U/L (46-116); Anion Gap 10.1; Aspartate Amino Transferase 21 U/L (15-37); Bilirubin Total 1.3 mg/dL (0.2-1.0); Calcium 8.8 mg/dL (8.5-10.1); Carbon Dioxide 31.2 mmol/L (21.0-32.0); Chloride 106 mmol/L (98-107); Estimated GFR (African America >60 (>=60 mL/min/1.73m^2); Estimated GFR (Non-African Ame >60 (>=60 mL/min/1.73m^2); Glucose 87 mg/dL (74-106); Magnesium 1.8 mg/dL (1.8-2.4); Phosphorus 3.5 mg/dL (2.6-4.7); Potassium 4.3 mmol/L (3.5-5.1); Sodium 143 mmol/L (136-145); Total Protein 6.7 g/dL (6.4-8.2)
[2024-05-16 07:10] LABS: Vitamin B12 1087 pg/mL (232-1245)
[2024-05-19 04:07] LABS: Vitamin B1 (Thiamine), Blood 151.4 nmol/L (66.5-200.0)
== END 2024-05-15 06:33 | disposition home or self-care (01) ==
PROVIDERS: PCP Family Medicine; Visit Provider Nurse Practitioner Family
DX: D50.9 Iron deficiency anemia, unspecified (principal); Z98.84 Bariatric surgery status
CPT/HCPCS: 36415; 80053; 82306; 82607; 82728; 82746; 83540; 83550; 83735; 84100; 84425; 85025